=== PATIENT | female | born 1955 | race Caucasian/White ===

== ENCOUNTER 2023-06-21 10:01 | Day surgery (SDC) | payer BC, SELFPAY ==
[2023-06-21] VITALS (7 sets, daily range): BP systolic 108–128; BP diastolic 72–102; PULSE 87–130; RESP 16–18; TEMP 36.1–36.8; O2SAT 96–100; BMI 18.3
--- NOTE | 2023-06-21 11:13 | P.ANESASSM_ITS ---
Pre-Anesthetic Assessment Height/Weight: Height 1.55 m Weight 44 kg Temp Pulse Resp BP Pulse Ox O2 Del Method 98.3 F 96 18 123/84 96 Room Air 06/21/23 10:25 06/21/23 10:25 06/21/23 10:25 06/21/23 10:25 06/21/23 10:25 06/21/23 10:32 Operation Date: 06/21/23 12:00 Proposed Procedures p [id number] port placement C18.0(Not Applicable) - Florentin Garcia DO Familial anesthetic complications: None Was Beta Kristin taken within 24 hours: N/A Was Clonidine taken within 24 hours: N/A Last intake: Intake Last Liquid Date 06/20/23 Last Liquid Time 23:55 Last Solid Date 06/20/23 Last Solid Time 23:55 Social No alcohol and No tobacco Exam alert, oriented x 3, clear to auscultation bilaterally and regular rate & rhythm Airway Mallampati: Class II Dentition: false Pulmonary None reported CV/HEM None reported None reported Hepatic None reported GI None reported Metabolic None reported Musc/skel None reported Neuropsych None reported Anesthetic Plan ASA status: 3 Anesthesia: MAC Risk of > 500 ml blood loss (7ml/kg in children): No Medications/Allergies Home Medications Medication Instructions Recorded Confirmed Last Taken Type multivitamin-ferrous 1 tab PO DAILY 05/31/23 06/20/23 06/20/23 History fumarate-folic acid 18 mg-400 mcg tablet (Centrum Women) oxycodone 10 mg tablet 10 mg PO BID PRN Pain 06/15/23 06/20/23 06/20/23 History Allergies Allergy/AdvReac Type Severity Reaction Status Date / Time latex Allergy Intermediate ALGY-Rash Verified 06/15/23 15:24 adhesive tape Allergy Mild ALGY-Rash Verified 06/15/23 15:24 COUNT INCLUDES THE [facility] Anesthesia Medical History Iron deficiency anemia History of malignant neoplasm of appendix (2019) Surgical History Hx of right hemicolectomy (06/18/18) Social History Smoking and tobacco/nicotine status: never used tobacco/nicotine Alcohol intake: never Substance/Drug Use: never Data Anesthesia Cardiac Studies: No Data to Display
[2023-06-21] MEDS: scopolamine 1.5 Patch 1 PATCH TRANSDERMA (11:16)
[2023-06-21] MEDS: sodium chloride 0.9% 1,000 ML 30 ML IV (11:16)
[2023-06-21] MEDS: ondansetron 2 mg/ML SDV 2 mL 4 MG IVP (11:17)
--- NOTE | 2023-06-21 11:39 | SC_ITS ---
WS: [id number] C-arm fluoroscopy for insertion of left infusion port, 06/21/2023 Clinical Data: port placement Comparison: None. Findings: The left infusion port enters the subclavian vein and ends in the mid superior vena cava. Impression: Insertion of left infusion port.
--- NOTE | 2023-06-21 12:12 | XRR_ITS ---
PROCEDURE INFORMATION: Exam: XR Chest Exam date and time: 06/21/2023 1:16 PM Age: 67 years old Clinical indication: Device placement; Other: Mediport placement; Prior surgery; Surgery date: Post-operative (0-2 days); Additional info: Postop mediport placement TECHNIQUE: Imaging protocol: Radiologic exam of the chest. Views: 1 view. COMPARISON: No relevant prior studies available. FINDINGS: Lungs: No focal consolidation. Pleural spaces: No evidence of pneumothorax. No evidence of pleural effusion. Heart/Mediastinum: Left subclavian approach MediPort in place with tip in the region of the mid SVC. Cardiomediastinal silhouette is within normal limits. Bones/joints: No evidence of acute osseous abnormality. XR/XR chest 1V portable [id number] IMPRESSION: 1. Left subclavian approach MediPort in place with tip in the region of the mid SVC.
--- NOTE | 2023-06-21 12:13 | W.PM.OPSUD ---
Surgery/Procedure H&P Update DATE OF PROCEDURE: June 21, 2023 DATE H&P PERFORMED: 06/15/23 H&P UPDATE INFORMATION: I have reviewed H&P completed within last 30 days, I have examined patient prior to procedure and No changes to prior documentation PLANNED PROCEDURE: Operation Date: 06/21/23 12:00 Proposed Procedures p [id number] port placement C18.0(Not Applicable) - Florentin Garcia DO
[2023-06-21] MEDS: ceFAZolin 2,000 MG in sodium chloride 0.9% (plus) 50 ML 100 MG IV (12:30)
[2023-06-21] MEDS: lidocaine-epi 2% 20 mL INJ INJECTION (12:53)
[2023-06-21] MEDS: heparin, porcine 1,000 unit/mL INJ 10 mL 10000 UNIT IRRIGATION (12:54)
--- NOTE | 2023-06-21 13:05 | PM.OP ---
Operative Report Date of procedure: June 21, 2023 Pre-op diagnosis: Colon cancer Post-op diagnosis: same Procedure done: Mediport insertion Implants: PowerPort Specimens removed/disposition: None Surgeon: Florentin Garcia DO Anesthesia: General Estimated blood loss (mL): 5 Complications: None apparent Brief History: This very pleasant 67-year-old female with colon cancer. Oncology requested Mediport placement. The risk and benefits were explained and documented. Procedure: They put another order I will do right now things the patient was taken to the operating room and placed supine on the operating room table. All bony prominences were padded. She was given IV sedation and monitored throughout the case by the anesthesia personnel. SCDs were placed and turned on. The arms were tucked to the side. Patient received Ancef 2 g preoperatively IV. The bilateral chest wall was prepped and draped in usual sterile fashion using chlorhexidine base prep. Sterile drapes were applied. We did procedure pause prior to beginning. An 18 gauge needle was placed in the left subclavian vein. Dark, nonpulsatile blood was aspirated. A guidewire was placed through the needle centrally toward the atrial/vena caval junction. Fluoroscopy visualized good placement. The needle was removed and the guidewire was clipped to the drape with a hemostat. Further local anesthetic was infiltrated in the soft tissues of the left chest wall and a #15 blade was used to make a horizontal skin incision. A subcutaneous Mediport pocket was created using Bovie cautery, dissecting down through the skin and subcutaneous tissues. Meticulous hemostasis was achieved. The Mediport was sutured in position using 3-0 vicryl suture x2 stitches. A #15 blade was used to make a small skin maddie around the guidewire insertion area. The Mediport tubing was tunneled through the subcutaneous tissues up to the needle insertion location. A dilator with a peel-away sheath was placed over the guidewire and placed centrally. After measuring the Mediport tubing was cut to length so that the tip would end at the atrial/vena caval junction. The inner cannula and the guidewire were removed, leaving the dilator sheath in place. The Mediport was flushed. The tip of the catheter was inserted through the peel-away sheath and the peel-away sheath removed in the standard fashion. The Mediport was accessed with a straight Walton needle and dark, nonpulsatile blood was aspirated and flushed using heparinized saline to hep-lock the Mediport. Final fluoroscopy visualization showed no kink in the catheter and the tip of the Mediport tubing near the atrial/vena caval junction. Both skin incisions were thoroughly irrigated and suctioned dry. Meticulous hemostasis noted. The dermis was approximated with 3-0 Vicryl in an interrupted fashion. Skin was closed with Dermabond. Patient was awakened from anesthesia and transferred via her cart to the recovery room in stable condition. All needle, sponge, and instrument counts were correct per the operating personnel x2 counts.
--- NOTE | 2023-06-21 14:20 | ANE.PACU2 ---
Inpatient post-anesthesia follow up: Airway intact: Yes Vital signs: Temperature 97.8 F Pulse Rate 87 Respiratory Rate 16 Blood Pressure 126/80 Pulse Oximetry 98 Oxygen Delivery Me thod Room Air Oxygen Flow Rate Fraction of Inspir ed Oxygen Hydration adequate: Yes Nausea and vomiting: No Pain level: 1 Mental status: Baseline
== END 2023-06-21 14:20 | disposition home or self-care (01) ==
PROVIDERS: PCP Family Medicine; Visit Provider Surgery
PROC: (CPT 36561; principal; 2023-06-21 12:00)
DX: C18.0 Malignant neoplasm of cecum (principal); Z90.49 Acquired absence of other specified parts of digestive tract
CPT/HCPCS: 36561; 71045; 76000; 77001; C1788; J0690; J1644; J2250; J2405; J2704; J3010; J3490; J7030

== ENCOUNTER 2023-06-27 12:08 | Oncology outpatient (recurring) (ONCR) | payer BC, SELFPAY ==
[2023-06-27 12:37] LABS: Basophils # 0.1 10^3/uL (0.0-0.1); Eosinophils # 1.3 10^3/uL (0.0-0.8); Eosinophils % 18.8 %; Hematocrit 35.5 % (36-47); Lymphocytes # 1.1 10^3/uL (0.8-4.8); Lymphocytes % 16.5 %; Mean Corpuscular HGB Conc 30.1 g/dL (30-55); Mean Corpuscular Hemoglobin 22.9 pg (27-33); Mean Corpuscular Volume 75.9 fl (85-98); Mean Platelet Volume 9.2 fL (7.4-10.4); Monocytes # 0.5 10^3/uL (0.2-0.9); Monocytes % 7.4 %; Neutrophils # 3.86 10^3/uL (1.8-7.7); Nucleated Red Blood Cells % 0 %; Platelet Count 383 10^3/cmm (157-399); Red Blood Count 4.68 10^6/uL (3.85-5.65); Red Cell Distribution Width 17.2 % (12.1-15.1)
[2023-06-27 12:54] LABS: Alanine Aminotransferase 7 U/L (0-33); Albumin Level 3.7 g/dL (3.5-5.2); Alkaline Phosphatase 479 U/L (35-105); Anion Gap 16.7 (5-19); Aspartate Amino Transferase 20 U/L (0-32); Blood Urea Nitrogen 7 mg/dL (8-23); Calcium 9.6 mg/dL (8.5-10.5); Carbon Dioxide 26 mmol/L (22-29); Chloride 98 mmol/L (98-107); Ferritin 211 ng/mL (15-150); Globulin 3.9 g/dL (1.3-4.6); Glucose 142 mg/dL (65-115); Iron 15 ug/dL (37-145); Osmolality Calculated 284 mOsm/kg (285-295); Percent Saturation 5.3 % (20-50); Potassium 3.7 mmol/L (3.5-5.1); Sodium 137 mmol/L (136-145); Total Bilirubin 0.2 mg/dL (0.15-1.2); Total Iron Binding Capacity 283 mcg/dl; Total Protein 7.6 g/dL (6.6-8.7); Unsaturated Iron Binding 268 ug/dL (112-347)
== END 2023-07-21 23:59 | disposition home or self-care (01) ==
PROVIDERS: Family Provider Surgery; PCP Family Medicine; Visit Provider Internal Medicine Medical Oncology
DX: C18.0 Malignant neoplasm of cecum (principal); C78.7 Secondary malignant neoplasm of liver and intrahepatic bile duct; Z79.899 Other long term (current) drug therapy; Z90.49 Acquired absence of other specified parts of digestive tract; C77.9 Secondary and unspecified malignant neoplasm of lymph node, unspecified; Z95.828 Presence of other vascular implants and grafts
CPT/HCPCS: 36415; 80053; 82378; 82728; 83540; 83550; 85025

== ENCOUNTER 2023-08-11 13:00 | Oncology outpatient (recurring) (ONCR) | payer BC, SELFPAY ==
[2023-07-26 08:04] LABS: Basophils # 0.1 10^3/uL (0.0-0.1); Basophils % 1.3 %; Eosinophils # 1.2 10^3/uL (0.0-0.8); Eosinophils % 15.3 %; Hematocrit 29.7 % (36-47); Lymphocytes # 1.6 10^3/uL (0.8-4.8); Lymphocytes % 19.8 %; Mean Corpuscular HGB Conc 29.6 g/dL (30-55); Mean Corpuscular Hemoglobin 21.7 pg (27-33); Mean Corpuscular Volume 73.3 fl (85-98); Mean Platelet Volume 9.4 fL (7.4-10.4); Monocytes # 0.7 10^3/uL (0.2-0.9); Monocytes % 8.8 %; Neutrophils # 4.28 10^3/uL (1.8-7.7); Neutrophils % 54.5 %; Nucleated Red Blood Cells % 0 %; Platelet Count 349 10^3/cmm (157-399); Red Blood Count 4.05 10^6/uL (3.85-5.65); Red Cell Distribution Width 17.4 % (12.1-15.1); White Blood Count 7.84 10^3/uL (3.29-11.43)
[2023-07-26 08:39] LABS: Alanine Aminotransferase 13 U/L (0-33); Albumin Level 3.5 g/dL (3.5-5.2); Alkaline Phosphatase 468 U/L (35-105); Anion Gap 17.8 (5-19); Aspartate Amino Transferase 25 U/L (0-32); Blood Urea Nitrogen 11 mg/dL (8-23); Calcium 8.7 mg/dL (8.5-10.5); Carbon Dioxide 23 mmol/L (22-29); Chloride 98 mmol/L (98-107); Globulin 3.7 g/dL (1.3-4.6); Glucose 109 mg/dL (65-115); Osmolality Calculated 280 mOsm/kg (285-295); Potassium 3.8 mmol/L (3.5-5.1); Sodium 135 mmol/L (136-145); Total Bilirubin 0.2 mg/dL (0.15-1.2); Total Protein 7.2 g/dL (6.6-8.7)
[2023-07-26] MEDS: sodium chloride 0.9% 250 ML 75 ML IV (10:32)
[2023-07-26] MEDS: palonosetron 0.25 mg/5 mL SDV IVP (10:35)
[2023-07-26] MEDS: SODIUM CHLORIDE 0.9% IV (11:15)
[2023-07-26] MEDS: BEVACIZUMAB AWWB IV (11:15)
[2023-07-26] MEDS: dextrose 5% 250 ML 75 ML IV (12:48)
[2023-07-26] MEDS: oxaliplatin 100 MG, oxaliplatin 10 MG in dextrose 5% 250 ML 136 MG IV (12:49)
[2023-07-26] MEDS: leucovorin 540 MG in dextrose 5% 250 ML 62.5 MG IV (12:50)
[2023-07-26] MEDS: fluorouraciL 50 mg/ml MDV 100 mL 550 MG IVP (15:19)
[2023-07-26] MEDS: ELASTOMERIC PUMP PUMP IV (15:20)
[2023-07-26] MEDS: FLUOROURACIL IV (15:20)
[2023-07-26] MEDS: SODIUM CHLORIDE IV (15:20)
[2023-07-28] MEDS: sodium chloride 0.9% 500 ML 999 ML IV (13:53)
[2023-07-28] MEDS: dexamethasone 4 mg/mL INJ 8 MG IVP (13:56)
[2023-07-28 14:22] VITALS: BP 155/85; PULSE 77; TEMP 37.3; O2SAT 98
[2023-08-02 09:07] LABS: Basophils % 0.2 %; Eosinophils # 0.1 10^3/uL (0.0-0.8); Lymphocytes # 0.9 10^3/uL (0.8-4.8); Lymphocytes % 19.6 %; Mean Corpuscular HGB Conc 29.4 g/dL (30-55); Mean Corpuscular Hemoglobin 21.4 pg (27-33); Mean Corpuscular Volume 72.9 fl (85-98); Mean Platelet Volume 8.6 fL (7.4-10.4); Monocytes # 0.2 10^3/uL (0.2-0.9); Monocytes % 4.2 %; Neutrophils # 3.33 10^3/uL (1.8-7.7); Neutrophils % 73.6 %; Nucleated Red Blood Cells % 0 %; Platelet Count 241 10^3/cmm (157-399); Red Blood Count 4.25 10^6/uL (3.85-5.65); White Blood Count 4.53 10^3/uL (3.29-11.43)
[2023-08-02 09:43] LABS: Alanine Aminotransferase 8 U/L (0-33); Albumin Level 3.6 g/dL (3.5-5.2); Alkaline Phosphatase 392 U/L (35-105); Anion Gap 16.3 (5-19); Aspartate Amino Transferase 18 U/L (0-32); Blood Urea Nitrogen 9 mg/dL (8-23); Carbon Dioxide 25 mmol/L (22-29); Chloride 98 mmol/L (98-107); Creatinine Clr Calc Pharmacy 49.7452; Globulin 4.1 g/dL (1.3-4.6); Glucose 122 mg/dL (65-115); Iron 15 ug/dL (37-145); Osmolality Calculated 282 mOsm/kg (285-295); Percent Saturation 5.3 % (20-50); Potassium 3.3 mmol/L (3.5-5.1); Sodium 136 mmol/L (136-145); Total Bilirubin 0.4 mg/dL (0.15-1.2); Total Iron Binding Capacity 279 mcg/dl; Total Protein 7.7 g/dL (6.6-8.7); Unsaturated Iron Binding 264 ug/dL (112-347)
[2023-08-02 09:55] LABS: Ferritin 1054 ng/mL (15-150)
[2023-08-02 09:57] LABS: Vitamin B12 1545 pg/mL (232-1245)
[2023-08-02 11:00] LABS: Folate Level > 20.0 ng/mL (4.8-37.3)
[2023-08-02 11:27] LABS: Bilirubin Urine Neg (Negative); Blood Urine Neg (Negative); Glucose Urine UA Norm (Normal); Ketones Urine Negative (Negative); Leukocyte Esterase Urine Negative (Negative); Nitrate Urine Negative (Negative); Protein Urine Neg (Negative); Specific Gravity, Urine 1.025 (1.005-1.030); Urine Appearance Clear (CLEAR); Urine Color Dark Yellow (Yellow); Urobilinogen Urine Norm (Negative); pH Urine 6 (5-7)
[2023-08-02] MEDS: sodium chlor 0.9% + KCl 40 mEq 40 MEQ/1,000 ML BAG 250 MEQ IV (11:29)
[2023-08-02 11:35] LABS: Mucus Urine 1+ /hpf; RBC Urine 0-4 /hpf (0-2)
[2023-08-02 11:36] LABS: Add Urine Culture? No; Amorphous Sediment Urine TRACE /hpf
[2023-08-02 13:51] VITALS: BP 135/81; PULSE 80; TEMP 36.8; O2SAT 98
[2023-08-05 14:04] LABS: Methylmalonic Acid 110 nmol/L (87-318)
[2023-08-08 11:50] LABS: Soluble Transferrin Receptor 2.66 mg/L (0.76-1.76)
[2023-08-09 08:12] LABS: Basophils % 0.4 %; Eosinophils # 0.3 10^3/uL (0.0-0.8); Lymphocytes # 1.4 10^3/uL (0.8-4.8); Lymphocytes % 29.5 %; Mean Corpuscular HGB Conc 29.3 g/dL (30-55); Mean Corpuscular Hemoglobin 21.6 pg (27-33); Mean Corpuscular Volume 73.7 fl (85-98); Mean Platelet Volume 8.8 fL (7.4-10.4); Monocytes # 0.4 10^3/uL (0.2-0.9); Monocytes % 9.2 %; Neutrophils # 2.56 10^3/uL (1.8-7.7); Neutrophils % 54.7 %; Nucleated Red Blood Cells % 0 %; Platelet Count 339 10^3/cmm (157-399); Red Cell Distribution Width 18.1 % (12.1-15.1); White Blood Count 4.68 10^3/uL (3.29-11.43)
[2023-08-09 08:17] LABS: Alanine Aminotransferase 8 U/L (0-33); Albumin Level 3.4 g/dL (3.5-5.2); Alkaline Phosphatase 320 U/L (35-105); Anion Gap 14.6 (5-19); Aspartate Amino Transferase 17 U/L (0-32); Blood Urea Nitrogen 11 mg/dL (8-23); Calcium 8.5 mg/dL (8.5-10.5); Carbon Dioxide 25 mmol/L (22-29); Chloride 105 mmol/L (98-107); Creatinine Clr Calc Pharmacy 49.1507; Globulin 3.2 g/dL (1.3-4.6); Glomerular Filtration Rate 123.4 mL/min (90-130); Glucose 82 mg/dL (65-115); Osmolality Calculated 290 mOsm/kg (285-295); Potassium 3.6 mmol/L (3.5-5.1); Sodium 141 mmol/L (136-145); Total Bilirubin 0.2 mg/dL (0.15-1.2); Total Protein 6.6 g/dL (6.6-8.7)
[2023-08-09] MEDS: sodium chloride 0.9% 250 ML 75 ML IV (09:22)
[2023-08-09] MEDS: palonosetron 0.25 mg/5 mL SDV IVP (09:23)
[2023-08-09] MEDS: BEVACIZUMAB AWWB IV (09:51)
[2023-08-09] MEDS: SODIUM CHLORIDE 0.9% IV (09:51)
[2023-08-09] MEDS: dextrose 5% 250 ML 75 ML IV (11:14)
[2023-08-09] MEDS: leucovorin 540 MG in dextrose 5% 250 ML 62.5 MG IV (11:15)
[2023-08-09] MEDS: oxaliplatin 100 MG, oxaliplatin 10 MG in dextrose 5% 250 ML 136 MG IV (11:15)
[2023-08-09] MEDS: FLUOROURACIL IV (13:58)
[2023-08-09] MEDS: SODIUM CHLORIDE IV (13:58)
[2023-08-09] MEDS: ELASTOMERIC PUMP PUMP IV (13:58)
[2023-08-09] MEDS: fluorouraciL 50 mg/ml MDV 100 mL 550 MG IVP ×2 (14:01→14:03)
[2023-08-09 14:20] VITALS: BP 112/78; PULSE 78; RESP 18; TEMP 36.6; O2SAT 98
[2023-08-10 07:30] LABS: Ferritin 293 ng/mL (15-150); Iron 23 ug/dL (37-145); Percent Saturation 8.6 % (20-50); Total Iron Binding Capacity 265 mcg/dl; Unsaturated Iron Binding 242 ug/dL (112-347)
[2023-08-11] MEDS: ferumoxytol (NON-ESRD) 510 MG in sodium chloride 0.9% (100 ml) 100 ML 351 MG IV (14:01)
[2023-08-11 14:09] VITALS: BP 133/71; PULSE 72; RESP 16; O2SAT 98
[2023-08-11 14:40] VITALS: BP 151/80; PULSE 75; RESP 18; TEMP 36.6; O2SAT 98
== END 2023-08-21 23:59 | disposition home or self-care (01) ==
PROVIDERS: Internal Medicine; Nurse Practitioner Family; Family Provider Surgery; PCP Family Medicine; Visit Provider Internal Medicine Medical Oncology
DX: D50.0 Iron deficiency anemia secondary to blood loss (chronic); Z53.9 Procedure and treatment not carried out, unspecified reason
CPT/HCPCS: 36415; 80053; 81001; 82378; 82607; 82728; 82746; 83540; 83550; 83921; 84238; 85025; 96360; 96365; 96366; 96367; 96368; 96375; 96411; 96413; 96415; 96416; 96417; 96523; J0640; J1100; J1642; J2469; J7040; J7050; J7060; J9190; J9263; Q0138; Q5107

== ENCOUNTER 2023-09-20 07:45 | Oncology outpatient (recurring) (ONCR) | payer BC, SELFPAY ==
[2023-08-23 08:00] LABS: Basophils % 0.6 %; Eosinophils # 0.1 10^3/uL (0.0-0.8); Eosinophils % 1.7 %; Hematocrit 33.6 % (36-47); Lymphocytes # 1.5 10^3/uL (0.8-4.8); Lymphocytes % 28.4 %; Mean Corpuscular HGB Conc 29.5 g/dL (30-55); Mean Corpuscular Hemoglobin 23.3 pg (27-33); Mean Corpuscular Volume 79.2 fl (85-98); Mean Platelet Volume 8.6 fL (7.4-10.4); Monocytes # 0.6 10^3/uL (0.2-0.9); Monocytes % 10.7 %; Neutrophils # 3.07 10^3/uL (1.8-7.7); Neutrophils % 58.4 %; Nucleated Red Blood Cells % 0 %; Platelet Count 157 10^3/cmm (157-399); Red Blood Count 4.24 10^6/uL (3.85-5.65); Red Cell Distribution Width 24.9 % (12.1-15.1); White Blood Count 5.25 10^3/uL (3.29-11.43)
[2023-08-23 08:22] LABS: Alanine Aminotransferase 14 U/L (0-33); Albumin Level 3.7 g/dL (3.5-5.2); Alkaline Phosphatase 228 U/L (35-105); Anion Gap 14.1 (5-19); Aspartate Amino Transferase 23 U/L (0-32); Blood Urea Nitrogen 9 mg/dL (8-23); Calcium 8.6 mg/dL (8.5-10.5); Carbon Dioxide 24 mmol/L (22-29); Chloride 109 mmol/L (98-107); Globulin 3.5 g/dL (1.3-4.6); Glomerular Filtration Rate 123.4 mL/min (90-130); Glucose 105 mg/dL (65-115); Osmolality Calculated 297 mOsm/kg (285-295); Potassium 3.1 mmol/L (3.5-5.1); Sodium 144 mmol/L (136-145); Total Bilirubin 0.2 mg/dL (0.15-1.2); Total Protein 7.2 g/dL (6.6-8.7)
[2023-08-23] MEDS: sodium chloride 0.9% 250 ML 75 ML IV (09:36)
[2023-08-23] MEDS: palonosetron 0.25 mg/5 mL SDV IVP (09:39)
[2023-08-23] MEDS: potassium chloride ER 10 mEq Tablet 40 MEQ PO (09:49)
[2023-08-23] MEDS: SODIUM CHLORIDE 0.9% IV (10:50)
[2023-08-23] MEDS: BEVACIZUMAB AWWB IV (10:50)
[2023-08-23] MEDS: dextrose 5% 250 ML 75 ML IV (11:40)
[2023-08-23] MEDS: leucovorin 540 MG in dextrose 5% 250 ML 62.5 MG IV (11:49)
[2023-08-23] MEDS: oxaliplatin 100 MG, oxaliplatin 10 MG in dextrose 5% 250 ML 136 MG IV (11:50)
[2023-08-23] MEDS: fluorouraciL 50 mg/ml MDV 100 mL 550 MG IVP (14:19)
[2023-08-23] MEDS: ELASTOMERIC PUMP PUMP IV (14:26)
[2023-08-23] MEDS: SODIUM CHLORIDE IV (14:26)
[2023-08-23] MEDS: FLUOROURACIL IV (14:26)
[2023-08-23 14:35] VITALS: BP 159/80; PULSE 76; RESP 17; TEMP 36.7; O2SAT 99
[2023-08-25 12:05] VITALS: BP 128/77; PULSE 79; RESP 16; TEMP 36.6; O2SAT 96
[2023-08-25] MEDS: ferumoxytol (NON-ESRD) 510 MG in sodium chloride 0.9% (100 ml) 100 ML 351 MG IV (12:43)
[2023-08-25 13:15] VITALS: BP 142/84; PULSE 77; RESP 16; TEMP 36.9; O2SAT 98
[2023-09-06 08:06] LABS: Basophils % 0.5 %; Eosinophils # 0.1 10^3/uL (0.0-0.8); Eosinophils % 1.9 %; Hematocrit 32.3 % (36-47); Lymphocytes # 1.4 10^3/uL (0.8-4.8); Lymphocytes % 31.6 %; Mean Corpuscular HGB Conc 30.7 g/dL (30-55); Mean Corpuscular Hemoglobin 25.7 pg (27-33); Mean Corpuscular Volume 83.9 fl (85-98); Mean Platelet Volume 8.8 fL (7.4-10.4); Monocytes # 0.6 10^3/uL (0.2-0.9); Monocytes % 14.4 %; Neutrophils # 2.22 10^3/uL (1.8-7.7); Neutrophils % 51.4 %; Nucleated Red Blood Cells % 0 %; Platelet Count 112 10^3/cmm (157-399); Red Blood Count 3.85 10^6/uL (3.85-5.65); Red Cell Distribution Width 30.9 % (12.1-15.1); White Blood Count 4.31 10^3/uL (3.29-11.43)
[2023-09-06 08:34] LABS: Carcinoembryonic Antigen 195.5 ng/mL (0.0-4.7)
[2023-09-06 08:45] LABS: Alanine Aminotransferase 27 U/L (0-33); Albumin Level 3.8 g/dL (3.5-5.2); Alkaline Phosphatase 205 U/L (35-105); Anion Gap 13.1 (5-19); Aspartate Amino Transferase 32 U/L (0-32); Blood Urea Nitrogen 10 mg/dL (8-23); Calcium 8.6 mg/dL (8.5-10.5); Carbon Dioxide 23 mmol/L (22-29); Chloride 111 mmol/L (98-107); Creatinine Clr Calc Pharmacy 49.3173; Glomerular Filtration Rate 99.7 mL/min (90-130); Glucose 93 mg/dL (65-115); Osmolality Calculated 297 mOsm/kg (285-295); Potassium 3.1 mmol/L (3.5-5.1); Sodium 144 mmol/L (136-145); Total Bilirubin 0.4 mg/dL (0.15-1.2); Total Protein 6.8 g/dL (6.6-8.7)
[2023-09-06] MEDS: sodium chlor 0.9% + KCl 40 mEq 40 MEQ/1,000 ML BAG 250 MEQ IV (09:52)
[2023-09-06 09:53] LABS: Add Urine Microscopic? YES; Bilirubin Urine Neg (Negative); Blood Urine 2+ (Negative); Glucose Urine UA Norm (Normal); Ketones Urine Negative (Negative); Leukocyte Esterase Urine Negative (Negative); Nitrate Urine Negative (Negative); Protein Urine Neg (Negative); Specific Gravity, Urine 1.025 (1.005-1.030); Urine Appearance Clear (CLEAR); Urine Color Yellow (Yellow); Urobilinogen Urine Neg (Negative); pH Urine 5 (5-7)
[2023-09-06 09:54] LABS: Add Urine Culture? No; Squamous Epithelial Cell Urine RARE /hpf (0-5); WBC Urine RARE /hpf (0-5)
[2023-09-06] MEDS: sodium chloride 0.9% 250 ML 75 ML IV (11:03)
[2023-09-06] MEDS: palonosetron 0.25 mg/5 mL SDV IVP (11:04)
[2023-09-06] MEDS: BEVACIZUMAB AWWB IV (12:04)
[2023-09-06] MEDS: SODIUM CHLORIDE 0.9% IV (12:04)
[2023-09-06] MEDS: dextrose 5% 250 ML 75 ML IV (12:55)
[2023-09-06] MEDS: leucovorin 540 MG in dextrose 5% 250 ML 62.5 MG IV (12:57)
[2023-09-06] MEDS: oxaliplatin 100 MG, oxaliplatin 10 MG in dextrose 5% 250 ML 136 MG IV (12:57)
[2023-09-06] MEDS: fluorouraciL 50 mg/ml MDV 100 mL 550 MG IVP (15:05)
[2023-09-06] MEDS: FLUOROURACIL IV (15:15)
[2023-09-06] MEDS: SODIUM CHLORIDE IV (15:15)
[2023-09-06] MEDS: ELASTOMERIC PUMP PUMP IV (15:15)
[2023-09-06 15:19] VITALS: BP 168/92; PULSE 88; RESP 16; TEMP 37.1; O2SAT 98
[2023-09-08 13:45] LABS: Add Urine Microscopic? YES; Bilirubin Urine Neg (Negative); Blood Urine 2+ (Negative); Glucose Urine UA Norm (Normal); Ketones Urine Negative (Negative); Leukocyte Esterase Urine Negative (Negative); Nitrate Urine Negative (Negative); Protein Urine Neg (Negative); Specific Gravity, Urine 1.025 (1.005-1.030); Urine Appearance Clear (CLEAR); Urine Color Yellow (Yellow); Urobilinogen Urine Norm (Negative); pH Urine 5 (5-7)
[2023-09-08 13:50] LABS: RBC Urine 0-4 /hpf (0-2); WBC Urine 0-4 /hpf (0-5)
[2023-09-08 13:51] LABS: Add Urine Culture? No; Mucus Urine 1+ /hpf; Squamous Epithelial Cell Urine 0-4 /hpf (0-5)
[2023-09-08 14:00] LABS: Anion Gap 13.5 (5-19); Blood Urea Nitrogen 12 mg/dL (8-23); Calcium 8.8 mg/dL (8.5-10.5); Carbon Dioxide 24 mmol/L (22-29); Chloride 105 mmol/L (98-107); Creatinine Clr Calc Pharmacy 49.6594; Glomerular Filtration Rate 123.1 mL/min (90-130); Glucose 125 mg/dL (65-115); Osmolality Calculated 289 mOsm/kg (285-295); Potassium 3.5 mmol/L (3.5-5.1); Sodium 139 mmol/L (136-145)
[2023-09-20 08:04] LABS: Basophils % 0.8 %; Eosinophils # 0.1 10^3/uL (0.0-0.8); Eosinophils % 2.1 %; Hematocrit 39.2 % (36-47); Lymphocytes # 1.5 10^3/uL (0.8-4.8); Lymphocytes % 31.6 %; Mean Corpuscular HGB Conc 31.4 g/dL (30-55); Mean Corpuscular Hemoglobin 27.5 pg (27-33); Mean Corpuscular Volume 87.5 fl (85-98); Mean Platelet Volume 8.8 fL (7.4-10.4); Monocytes # 0.5 10^3/uL (0.2-0.9); Monocytes % 11.5 %; Neutrophils # 2.52 10^3/uL (1.8-7.7); Neutrophils % 53.6 %; Nucleated Red Blood Cells % 0 %; Platelet Count 95 10^3/cmm (157-399); Red Blood Count 4.48 10^6/uL (3.85-5.65); White Blood Count 4.71 10^3/uL (3.29-11.43)
[2023-09-20 08:30] LABS: Add RBC Morph Yes; Slide Review Slide Review Perform
[2023-09-20 08:31] LABS: Anisocytosis 2+; Dimorphic RBC 2+; Hypochromasia 1+; Microcytosis 1+; Poikilocytosis 2+; RBC Morph Comp No
[2023-09-20 08:40] LABS: Carcinoembryonic Antigen 124.6 ng/mL (0.0-4.7)
[2023-09-20 08:53] LABS: Anion Gap 13.5 (5-19); Blood Urea Nitrogen 10 mg/dL (8-23); Carbon Dioxide 25 mmol/L (22-29); Chloride 103 mmol/L (98-107); Potassium 3.5 mmol/L (3.5-5.1); Sodium 138 mmol/L (136-145)
[2023-09-20 08:54] LABS: Alanine Aminotransferase 43 U/L (0-33); Alkaline Phosphatase 261 U/L (35-105); Aspartate Amino Transferase 40 U/L (0-32); Calcium 9.4 mg/dL (8.5-10.5); Creatinine Clr Calc Pharmacy 49.6594; Globulin 3.5 g/dL (1.3-4.6); Glomerular Filtration Rate 99.7 mL/min (90-130); Glucose 122 mg/dL (65-115); Osmolality Calculated 286 mOsm/kg (285-295); Total Bilirubin 0.5 mg/dL (0.15-1.2); Total Protein 7.5 g/dL (6.6-8.7)
[2023-09-20] MEDS: palonosetron 0.25 mg/5 mL SDV IVP (10:06)
[2023-09-20] MEDS: sodium chloride 0.9% 250 ML 75 ML IV (10:06)
[2023-09-20] MEDS: BEVACIZUMAB AWWB IV (10:39)
[2023-09-20] MEDS: SODIUM CHLORIDE 0.9% IV (10:39)
[2023-09-20] MEDS: dextrose 5% 250 ML 75 ML IV (11:15)
[2023-09-20] MEDS: leucovorin 540 MG in dextrose 5% 250 ML 62.5 MG IV (11:20)
[2023-09-20] MEDS: oxaliplatin 100 MG, oxaliplatin 10 MG in dextrose 5% 250 ML 136 MG IV (11:20)
[2023-09-20] MEDS: fluorouraciL 50 mg/ml MDV 100 mL 550 MG IVP (13:42)
[2023-09-20] MEDS: SODIUM CHLORIDE IV (13:50)
[2023-09-20] MEDS: ELASTOMERIC PUMP PUMP IV (13:50)
[2023-09-20] MEDS: FLUOROURACIL IV (13:50)
[2023-09-20 14:00] VITALS: BP 157/80; PULSE 77; RESP 16; TEMP 35.8; O2SAT 98
== END 2023-09-20 23:59 | disposition home or self-care (01) ==
PROVIDERS: Internal Medicine; Family Provider Surgery; PCP Family Medicine; Visit Provider Internal Medicine Medical Oncology
DX: C18.3 Malignant neoplasm of hepatic flexure (principal); Z53.9 Procedure and treatment not carried out, unspecified reason; Z90.49 Acquired absence of other specified parts of digestive tract; C77.9 Secondary and unspecified malignant neoplasm of lymph node, unspecified; C78.7 Secondary malignant neoplasm of liver and intrahepatic bile duct; Z79.899 Other long term (current) drug therapy; Z51.11 Encounter for antineoplastic chemotherapy; Z95.828 Presence of other vascular implants and grafts; Z79.52 Long term (current) use of systemic steroids
CPT/HCPCS: 36591; 80048; 80053; 81001; 82378; 85025; 96365; 96366; 96367; 96368; 96375; 96409; 96411; 96413; 96415; 96416; 96417; 96523; J0640; J1100; J2469; J7050; J7060; J9190; J9263; Q0138; Q5107

== ENCOUNTER 2023-10-20 09:30 | Oncology outpatient (recurring) (ONCR) | payer BC, SELFPAY ==
[2023-10-04 08:44] LABS: Basophils % 0.3 %; Eosinophils # 0.1 10^3/uL (0.0-0.8); Hematocrit 33.9 % (36-47); Lymphocytes # 1.2 10^3/uL (0.8-4.8); Lymphocytes % 40.7 %; Mean Corpuscular HGB Conc 32.4 g/dL (30-55); Mean Corpuscular Hemoglobin 28.7 pg (27-33); Mean Corpuscular Volume 88.5 fl (85-98); Mean Platelet Volume 9.1 fL (7.4-10.4); Monocytes # 0.4 10^3/uL (0.2-0.9); Monocytes % 13.6 %; Neutrophils # 1.27 10^3/uL (1.8-7.7); Neutrophils % 42.1 %; Nucleated Red Blood Cells % 0 %; Platelet Count 58 10^3/cmm (157-399); Red Blood Count 3.83 10^6/uL (3.85-5.65); White Blood Count 3.02 10^3/uL (3.29-11.43)
[2023-10-04 09:01] LABS: Alanine Aminotransferase 37 U/L (0-33); Albumin Level 3.8 g/dL (3.5-5.2); Alkaline Phosphatase 260 U/L (35-105); Anion Gap 13.5 (5-19); Aspartate Amino Transferase 46 U/L (0-32); Blood Urea Nitrogen 7 mg/dL (8-23); Calcium 8.5 mg/dL (8.5-10.5); Carbon Dioxide 25 mmol/L (22-29); Chloride 105 mmol/L (98-107); Creatinine Clr Calc Pharmacy 49.4638; Globulin 3.2 g/dL (1.3-4.6); Glomerular Filtration Rate 123.1 mL/min (90-130); Glucose 95 mg/dL (65-115); Osmolality Calculated 288 mOsm/kg (285-295); Potassium 3.5 mmol/L (3.5-5.1); Sodium 140 mmol/L (136-145); Total Bilirubin 0.4 mg/dL (0.15-1.2)
[2023-10-04 09:18] LABS: Slide Review Slide Review Perform
[2023-10-04] MEDS: sodium chloride 0.9% 500 ML 999 ML IV (09:48)
[2023-10-04 09:53] LABS: Add Urine Microscopic? YES; Bilirubin Urine Neg (Negative); Blood Urine Neg (Negative); Glucose Urine UA Norm (Normal); Ketones Urine Negative (Negative); Leukocyte Esterase Urine Negative (Negative); Nitrate Urine Negative (Negative); Protein Urine Neg (Negative); Specific Gravity, Urine 1.025 (1.005-1.030); Urine Appearance SL Hazy (CLEAR); Urine Color Yellow (Yellow); Urobilinogen Urine Norm (Negative); pH Urine 6 (5-7)
[2023-10-04 09:56] LABS: Add Urine Culture? No; Mucus Urine 2+ /hpf; RBC Urine 0-4 /hpf (0-2); Squamous Epithelial Cell Urine 0-4 /hpf (0-5); WBC Urine 0-4 /hpf (0-5)
[2023-10-11 08:57] LABS: Basophils % 0.8 %; Eosinophils % 0.8 %; Hematocrit 37.3 % (36-47); Lymphocytes # 1.2 10^3/uL (0.8-4.8); Lymphocytes % 45.6 %; Mean Corpuscular HGB Conc 31.9 g/dL (30-55); Mean Corpuscular Hemoglobin 30.1 pg (27-33); Mean Corpuscular Volume 94.2 fl (85-98); Mean Platelet Volume 8.6 fL (7.4-10.4); Monocytes # 0.7 10^3/uL (0.2-0.9); Neutrophils % 25.4 %; Nucleated Red Blood Cells % 0 %; Platelet Count 112 10^3/cmm (157-399); Red Blood Count 3.96 10^6/uL (3.85-5.65); White Blood Count 2.59 10^3/uL (3.29-11.43)
[2023-10-11 09:13] LABS: Alanine Aminotransferase 24 U/L (0-33); Albumin Level 3.8 g/dL (3.5-5.2); Alkaline Phosphatase 256 U/L (35-105); Anion Gap 14.2 (5-19); Aspartate Amino Transferase 28 U/L (0-32); Blood Urea Nitrogen 15 mg/dL (8-23); Calcium 9.2 mg/dL (8.5-10.5); Carbon Dioxide 25 mmol/L (22-29); Chloride 104 mmol/L (98-107); Creatinine Clr Calc Pharmacy 49.4638; Globulin 3.7 g/dL (1.3-4.6); Glomerular Filtration Rate 99.7 mL/min (90-130); Glucose 97 mg/dL (65-115); Osmolality Calculated 289 mOsm/kg (285-295); Potassium 4.2 mmol/L (3.5-5.1); Sodium 139 mmol/L (136-145); Total Bilirubin 0.5 mg/dL (0.15-1.2); Total Protein 7.5 g/dL (6.6-8.7)
[2023-10-11 10:09] LABS: Neutrophils # 0.66 10^3/uL (1.8-7.7)
[2023-10-11 10:12] LABS: Slide Review Slide Review Perform
[2023-10-11 11:27] VITALS: BP 136/87; PULSE 85; RESP 17; TEMP 37; O2SAT 95
[2023-10-11] MEDS: filgrastim-sndz 300 mcg/0.5 mL Syringe SUBCUT (11:41)
[2023-10-11 11:45] VITALS: BP 136/87; PULSE 85; RESP 17; TEMP 37; O2SAT 95
[2023-10-12 16:23] VITALS: BP 116/77; PULSE 88; RESP 16; TEMP 36.6; O2SAT 97
[2023-10-12] MEDS: filgrastim-sndz 300 mcg/0.5 mL Syringe SUBCUT (16:25)
[2023-10-13] MEDS: filgrastim-sndz 300 mcg/0.5 mL Syringe SUBCUT (14:41)
[2023-10-13 14:44] VITALS: BP 116/78; PULSE 108; RESP 16; TEMP 36.6; O2SAT 99
[2023-10-18 08:24] LABS: Basophils # 0.1 10^3/uL (0.0-0.1); Basophils % 0.9 %; Eosinophils % 0.7 %; Hematocrit 38.4 % (36-47); Lymphocytes # 1.6 10^3/uL (0.8-4.8); Mean Corpuscular HGB Conc 32.3 g/dL (30-55); Mean Corpuscular Hemoglobin 30.5 pg (27-33); Mean Corpuscular Volume 94.3 fl (85-98); Mean Platelet Volume 9.6 fL (7.4-10.4); Monocytes # 0.7 10^3/uL (0.2-0.9); Monocytes % 11.9 %; Neutrophils # 2.78 10^3/uL (1.8-7.7); Neutrophils % 50.4 %; Nucleated Red Blood Cells % 0 %; Platelet Count 113 10^3/cmm (157-399); Red Blood Count 4.07 10^6/uL (3.85-5.65); White Blood Count 5.53 10^3/uL (3.29-11.43)
[2023-10-18 08:55] LABS: Carcinoembryonic Antigen 39.5 ng/mL (0.0-4.7)
[2023-10-18 09:07] LABS: Alanine Aminotransferase 25 U/L (0-33); Albumin Level 3.8 g/dL (3.5-5.2); Alkaline Phosphatase 271 U/L (35-105); Anion Gap 16.5 (5-19); Aspartate Amino Transferase 32 U/L (0-32); Blood Urea Nitrogen 11 mg/dL (8-23); Carbon Dioxide 24 mmol/L (22-29); Chloride 105 mmol/L (98-107); Creatinine Clr Calc Pharmacy 49.4638; Globulin 3.5 g/dL (1.3-4.6); Glomerular Filtration Rate 123.1 mL/min (90-130); Glucose 131 mg/dL (65-115); Osmolality Calculated 295 mOsm/kg (285-295); Potassium 3.5 mmol/L (3.5-5.1); Sodium 142 mmol/L (136-145); Total Bilirubin 0.3 mg/dL (0.15-1.2); Total Protein 7.3 g/dL (6.6-8.7)
[2023-10-18 09:31] LABS: Slide Review Slide Review Perform
[2023-10-18] MEDS: sodium chloride 0.9% 250 ML 75 ML IV (10:16)
[2023-10-18] MEDS: palonosetron 0.25 mg/5 mL SDV IVP (10:19)
[2023-10-18] MEDS: SODIUM CHLORIDE 0.9% IV (10:59)
[2023-10-18] MEDS: BEVACIZUMAB AWWB IV (10:59)
[2023-10-18] MEDS: dextrose 5% 250 ML 75 ML IV (11:43)
[2023-10-18] MEDS: oxaliplatin 100 MG, oxaliplatin 10 MG in dextrose 5% 250 ML 136 MG IV (11:44)
[2023-10-18] MEDS: leucovorin 540 MG in dextrose 5% 250 ML 62.5 MG IV (11:44)
[2023-10-18 13:40] VITALS: BP 124/78; PULSE 74; RESP 18; TEMP 36.6; O2SAT 98
[2023-10-18] MEDS: fluorouraciL 50 mg/ml MDV 100 mL 550 MG IVP (13:42)
[2023-10-18] MEDS: FLUOROURACIL IV (13:43)
[2023-10-18] MEDS: SODIUM CHLORIDE IV (13:43)
[2023-10-18] MEDS: ELASTOMERIC PUMP PUMP IV (13:43)
[2023-10-20 10:03] VITALS: BP 147/81; PULSE 84; RESP 18; TEMP 36.6; O2SAT 98
== END 2023-10-21 23:59 | disposition home or self-care (01) ==
PROVIDERS: Internal Medicine; Nurse Practitioner Family; Family Provider Surgery; PCP Family Medicine; Visit Provider Internal Medicine Medical Oncology
DX: Z45.1 Encounter for adjustment and management of infusion pump (principal); Z53.9 Procedure and treatment not carried out, unspecified reason
CPT/HCPCS: 80053; 81001; 82378; 85025; 96360; 96365; 96367; 96368; 96372; 96375; 96413; 96415; 96416; 96417; 96523; J0640; J1100; J2469; J7040; J7050; J7060; J9190; J9263; Q5101; Q5107

== ENCOUNTER 2023-11-18 14:45 | Oncology outpatient (recurring) (ONCR) | payer BC, SELFPAY ==
--- NOTE | 2023-10-31 12:00 | CT_ITS ---
WS: [id number] CT CHEST, ABDOMEN AND PELVIS WITH CONTRAST HISTORY: Restaging, colon and liver cancer. TECHNIQUE: Contiguous 5 mm axial imaging performed through the chest, abdomen and pelvis with IV cont rast, oral contrast has been provided. Coronal and sagittal reformats chest. Coronal and sagittal ref ormats through the abdomen and pelvis. All CT scans at [facility] use at least one of these d ose optimization techniques: automated exposure control; mA and/or kV adjustment per patient size (in cludes targeted exams where dose is matched to clinical indication); or iterative reconstruction. CONTRAST: Omnipaque 350; 100 mL IV. DLP: 398.42 mGy.cm COMPARISON: None available. History of prior RIGHT hemicolectomy 2018. Recurrent: Neoplasm March 2023. Biopsy-proven hepatic m etastatic disease. This history was obtained from oncology documentation. Chest CT: There are a few very small micronodules, less than 3 mm. No dominant mass or nodule. No pne umonia. No endobronchial lesions. LEFT subclavian Port-A-Cath. Mild atherosclerosis thoracic aorta. N ormal size pulmonary artery. Normal size heart. No pericardial or pleural effusions. No mediastinal o r hilar adenopathy. There are a few small axillary lymph nodes. No chest wall abnormality. No osteobl astic or osteolytic bone disease. Abdomen CT: Very large mass with irregular lobulated borders replacing a large portion RIGHT lobe of the liver. Low-attenuation mass measures 9.4 x 11.0 x 11.7 cm. 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 Th e RIGHT portal vein is not evident. The main portal vein and LEFT portal vein normal. There is mild c entral bile duct dilatation related to the hepatic mass. Normal size spleen. Gallbladder is slightly contracted with hepatic tumor extending to abut the gallbladder. Negative pancreas. No adrenal mass. No renal obstruction. Extrarenal pelvis on the RIGHT. No adrenal mass. Mild atherosclerosis aorta. No thrombus in the celiac axis or SMA. Stomach is well distended with oral contrast. Pylorus and proximal duodenal C-loop are markedly thick ened. There is circumferential thickening measuring up to 9 mm. No small bowel obstruction. Right-shireen ed hemicolectomy. Surgical anastomosis in the mid transverse colon. No recurrent mass is identified. Mild wall thickening at the rectum and. This area is difficult to evaluate by CT without contrast. No omental carcinomatosis. No ascites. Pelvic CT: No free fluid in the pelvis. Fluid-filled endometrial cavity. Normally distended urinary b ladder. No destructive bone lesions. CT/CT chest abdpel w/*[id number] IMPRESSION: 1. Status post RIGHT hemicolectomy. Surgical anastomosis in the mid transverse colon is identified. No recurrent mass is present or obstruction. The distal c olon is difficult to adequately imaged by CT. 2. Hepatic mass in the RIGHT lobe measures 9.4 x 11.0 x 11.7 cm. Consistent wi th a previously biopsied hepatic metastatic site. 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 3. Diffuse circumferential wall thickening of the pylorus and duodenal C-loop. Neoplasm is not excluded. There is no obstruction. 4. No ascites. 5. Marked fluid-filled endometrium. Recommend transvaginal pelvic ultrasound e valuation. Endometrial neoplasm should be considered and excluded.
[2023-10-31] MEDS: iohexol 350 mg/mL 100 mL Btl PO (12:05)
[2023-10-31] MEDS: iohexol 350 mg/mL 500 mL Btl (per mL) IV (12:05)
[2023-11-01 07:54] LABS: Basophils % 0.2 %; Eosinophils % 0.5 %; Hematocrit 33.4 % (36-47); Lymphocytes # 0.9 10^3/uL (0.8-4.8); Lymphocytes % 22.4 %; Mean Corpuscular HGB Conc 33.5 g/dL (30-55); Mean Corpuscular Hemoglobin 32.3 pg (27-33); Mean Corpuscular Volume 96.3 fl (85-98); Mean Platelet Volume 9.1 fL (7.4-10.4); Monocytes # 0.8 10^3/uL (0.2-0.9); Monocytes % 18.6 %; Neutrophils # 2.44 10^3/uL (1.8-7.7); Neutrophils % 58.1 %; Nucleated Red Blood Cells % 0 %; Platelet Count 146 10^3/cmm (157-399); Red Blood Count 3.47 10^6/uL (3.85-5.65); Red Cell Distribution Width 19.2 % (12.1-15.1)
[2023-11-01 08:16] LABS: Alanine Aminotransferase 36 U/L (0-33); Albumin Level 3.7 g/dL (3.5-5.2); Alkaline Phosphatase 373 U/L (35-105); Anion Gap 16.1 (5-19); Aspartate Amino Transferase 34 U/L (0-32); Blood Urea Nitrogen 7 mg/dL (8-23); Calcium 8.9 mg/dL (8.5-10.5); Carbon Dioxide 25 mmol/L (22-29); Chloride 101 mmol/L (98-107); Globulin 3.6 g/dL (1.3-4.6); Glomerular Filtration Rate 159.2 mL/min (90-130); Glucose 105 mg/dL (65-115); Osmolality Calculated 286 mOsm/kg (285-295); Potassium 3.1 mmol/L (3.5-5.1); Sodium 139 mmol/L (136-145); Total Bilirubin 0.8 mg/dL (0.15-1.2); Total Protein 7.3 g/dL (6.6-8.7)
[2023-11-01 08:23] LABS: Carcinoembryonic Antigen 28.4 ng/mL (0.0-4.7)
[2023-11-01] MEDS: palonosetron 0.25 mg/5 mL SDV IVP (09:39)
[2023-11-01] MEDS: sodium chloride 0.9% 250 ML 75 ML IV (09:39)
[2023-11-01] MEDS: SODIUM CHLORIDE 0.9% IV (10:28)
[2023-11-01] MEDS: BEVACIZUMAB AWWB IV (10:28)
[2023-11-01] MEDS: dextrose 5% 250 ML 75 ML IV (11:15)
[2023-11-01] MEDS: oxaliplatin 100 MG, oxaliplatin 10 MG in dextrose 5% 250 ML 136 MG IV (11:19)
[2023-11-01] MEDS: leucovorin 540 MG in dextrose 5% 250 ML 62.5 MG IV (11:20)
[2023-11-01] MEDS: fluorouraciL 50 mg/ml MDV 100 mL 550 MG IVP (14:19)
[2023-11-01] MEDS: ELASTOMERIC PUMP PUMP IV (14:32)
[2023-11-01] MEDS: FLUOROURACIL IV (14:32)
[2023-11-01] MEDS: SODIUM CHLORIDE IV (14:32)
[2023-11-01 14:45] VITALS: BP 156/82; PULSE 82; RESP 17; TEMP 35.9; O2SAT 97
[2023-11-03 12:50] VITALS: BP 128/81; PULSE 97; RESP 16; TEMP 37.1; O2SAT 98
[2023-11-15 08:26] LABS: Basophils % 0.6 %; Eosinophils % 0.6 %; Hematocrit 34.1 % (36-47); Lymphocytes # 1.1 10^3/uL (0.8-4.8); Lymphocytes % 32.9 %; Mean Corpuscular HGB Conc 33.4 g/dL (30-55); Mean Corpuscular Hemoglobin 32.9 pg (27-33); Mean Corpuscular Volume 98.6 fl (85-98); Mean Platelet Volume 8.9 fL (7.4-10.4); Monocytes # 0.6 10^3/uL (0.2-0.9); Neutrophils # 1.69 10^3/uL (1.8-7.7); Neutrophils % 48.6 %; Nucleated Red Blood Cells % 0 %; Platelet Count 84 10^3/cmm (157-399); Red Blood Count 3.46 10^6/uL (3.85-5.65); Red Cell Distribution Width 17.2 % (12.1-15.1); White Blood Count 3.47 10^3/uL (3.29-11.43)
[2023-11-15 08:44] LABS: Alanine Aminotransferase 21 U/L (0-33); Albumin Level 3.7 g/dL (3.5-5.2); Alkaline Phosphatase 274 U/L (35-105); Anion Gap 16.7 (5-19); Aspartate Amino Transferase 37 U/L (0-32); Blood Urea Nitrogen 8 mg/dL (8-23); Carbon Dioxide 23 mmol/L (22-29); Chloride 105 mmol/L (98-107); Creatinine Clr Calc Pharmacy 49.2686; Globulin 3.6 g/dL (1.3-4.6); Glomerular Filtration Rate 159.2 mL/min (90-130); Glucose 92 mg/dL (65-115); Osmolality Calculated 290 mOsm/kg (285-295); Potassium 3.7 mmol/L (3.5-5.1); Sodium 141 mmol/L (136-145); Total Bilirubin 0.3 mg/dL (0.15-1.2); Total Protein 7.3 g/dL (6.6-8.7)
--- NOTE | 2023-11-18 14:45 | US_ITS ---
WS: [id number] US transvaginal [id number] HISTORY: marked fluid filled endometrium on CT scan 10/31/23. COMPARISON: None available. Uterus: 4.9 cm x 4.6 cm x 2.9 cm. Anteverted small caliber uterus. Peripheral increased vascularity. Endometrium: The endometrium and the junctional zone are poorly defined. There may be a very thin end ometrium in the adjacent areas of decreased echogenicity may be the normal myometrium. There is no ma ss or increased vascularity. Neither ovary is identified. No adnexal mass. No free fluid. US/US transvaginal [id number] IMPRESSION: 1. Poorly defined endometrium. No definite endometrium is identified. There ma y be a very thin endometrium and the areas of decreased attenuation on the rece nt CT may be the normal myometrium for this patient. There is no increased vasc ularity. 2. Atrophic uterus. 3. Neither ovary identified.
== END 2023-11-20 23:59 | disposition home or self-care (01) ==
LOC: ONCMED 11-21 10:16
PROVIDERS: Internal Medicine Medical Oncology; Family Provider Surgery; PCP Family Medicine; Visit Provider Nurse Practitioner Family
DX: Z53.9 Procedure and treatment not carried out, unspecified reason (principal); C18.3 Malignant neoplasm of hepatic flexure; R93.5 Abnormal findings on diagnostic imaging of other abdominal regions, including retroperitoneum; N85.8 Other specified noninflammatory disorders of uterus
CPT/HCPCS: 71260; 74177; 76830; 80053; 82378; 85025; 96365; 96366; 96367; 96375; 96413; 96415; 96416; 96417; 96523; J0640; J1100; J2469; J7050; J7060; J9190; J9263; Q5107; Q9967

== ENCOUNTER 2023-12-15 13:30 | Oncology outpatient (recurring) (ONCR) | payer BC, SELFPAY ==
[2023-11-22 08:35] LABS: Basophils % 1.2 %; Eosinophils % 1.6 %; Hematocrit 38.7 % (36-47); Lymphocytes # 1.4 10^3/uL (0.8-4.8); Mean Corpuscular HGB Conc 32.3 g/dL (30-55); Mean Corpuscular Hemoglobin 33.1 pg (27-33); Mean Corpuscular Volume 102.4 fl (85-98); Monocytes # 0.4 10^3/uL (0.2-0.9); Monocytes % 15.2 %; Nucleated Red Blood Cells % 0 %; Platelet Count 140 10^3/cmm (157-399); Red Blood Count 3.78 10^6/uL (3.85-5.65); Red Cell Distribution Width 17.2 % (12.1-15.1); White Blood Count 2.44 10^3/uL (3.29-11.43)
[2023-11-22 08:59] LABS: Neutrophils # 0.61 10^3/uL (1.8-7.7)
[2023-11-22 09:01] LABS: Alanine Aminotransferase 42 U/L (0-33); Alkaline Phosphatase 302 U/L (35-105); Anion Gap 16.6 (5-19); Aspartate Amino Transferase 60 U/L (0-32); Blood Urea Nitrogen 8 mg/dL (8-23); Calcium 9.5 mg/dL (8.5-10.5); Carbon Dioxide 25 mmol/L (22-29); Chloride 102 mmol/L (98-107); Globulin 3.6 g/dL (1.3-4.6); Glomerular Filtration Rate 123.1 mL/min (90-130); Glucose 135 mg/dL (65-115); Osmolality Calculated 290 mOsm/kg (285-295); Potassium 3.6 mmol/L (3.5-5.1); Sodium 140 mmol/L (136-145); Total Bilirubin 0.4 mg/dL (0.15-1.2); Total Protein 7.6 g/dL (6.6-8.7)
[2023-11-22 11:36] LABS: Carcinoembryonic Antigen 21.9 ng/mL (0.0-4.7)
[2023-11-29 08:29] LABS: Basophils % 0.9 %; Eosinophils % 1.2 %; Hematocrit 38.6 % (36-47); Lymphocytes # 1.2 10^3/uL (0.8-4.8); Lymphocytes % 33.8 %; Mean Corpuscular HGB Conc 32.4 g/dL (30-55); Mean Corpuscular Volume 101.8 fl (85-98); Mean Platelet Volume 9.3 fL (7.4-10.4); Monocytes # 0.4 10^3/uL (0.2-0.9); Monocytes % 11.3 %; Neutrophils # 1.82 10^3/uL (1.8-7.7); Neutrophils % 52.5 %; Nucleated Red Blood Cells % 0 %; Platelet Count 109 10^3/cmm (157-399); Red Blood Count 3.79 10^6/uL (3.85-5.65); Red Cell Distribution Width 14.8 % (12.1-15.1); White Blood Count 3.46 10^3/uL (3.29-11.43)
[2023-11-29 08:37] LABS: Alanine Aminotransferase 21 U/L (0-33); Albumin Level 3.8 g/dL (3.5-5.2); Alkaline Phosphatase 288 U/L (35-105); Anion Gap 15.6 (5-19); Aspartate Amino Transferase 32 U/L (0-32); Blood Urea Nitrogen 12 mg/dL (8-23); Calcium 9.1 mg/dL (8.5-10.5); Carbon Dioxide 25 mmol/L (22-29); Chloride 106 mmol/L (98-107); Creatinine Clr Calc Pharmacy 49.1707; Globulin 3.5 g/dL (1.3-4.6); Glomerular Filtration Rate 99.7 mL/min (90-130); Glucose 143 mg/dL (65-115); Osmolality Calculated 298 mOsm/kg (285-295); Potassium 3.6 mmol/L (3.5-5.1); Sodium 143 mmol/L (136-145); Total Bilirubin 0.4 mg/dL (0.15-1.2); Total Protein 7.3 g/dL (6.6-8.7)
[2023-11-29] MEDS: sodium chloride 0.9% 250 ML 75 ML IV (10:36)
[2023-11-29] MEDS: palonosetron 0.25 mg/5 mL SDV IVP (10:36)
[2023-11-29] MEDS: dexamethasone 4 mg/mL INJ 5 mL 12 MG IV (10:38)
[2023-11-29] MEDS: fosaprepitant 150 MG in sodium chloride 0.9% 150 ML 300 MG IV (10:41)
[2023-11-29] MEDS: BEVACIZUMAB AWWB IV (11:29)
[2023-11-29] MEDS: SODIUM CHLORIDE 0.9% IV (11:29)
[2023-11-29] MEDS: dextrose 5% 250 ML 75 ML IV (12:06)
[2023-11-29] MEDS: leucovorin 540 MG in dextrose 5% 250 ML 115 MG IV (12:08)
[2023-11-29 14:39] VITALS: BP 138/84; PULSE 76; TEMP 36.8; O2SAT 97
[2023-11-29] MEDS: FLUOROURACIL IV (14:45)
[2023-11-29] MEDS: SODIUM CHLORIDE IV (14:45)
[2023-11-29] MEDS: ELASTOMERIC PUMP PUMP IV (14:45)
[2023-12-01 12:51] VITALS: BP 127/88; PULSE 88; RESP 16; TEMP 36.1; O2SAT 98
[2023-12-13 08:14] LABS: Basophils % 0.5 %; Eosinophils # 0.1 10^3/uL (0.0-0.8); Eosinophils % 1.9 %; Hematocrit 38.8 % (36-47); Lymphocytes # 1.1 10^3/uL (0.8-4.8); Lymphocytes % 30.4 %; Mean Corpuscular HGB Conc 33.5 g/dL (30-55); Mean Corpuscular Hemoglobin 33.9 pg (27-33); Mean Corpuscular Volume 101.3 fl (85-98); Mean Platelet Volume 9.2 fL (7.4-10.4); Monocytes # 0.4 10^3/uL (0.2-0.9); Monocytes % 9.8 %; Neutrophils # 2.11 10^3/uL (1.8-7.7); Neutrophils % 57.1 %; Nucleated Red Blood Cells % 0 %; Platelet Count 94 10^3/cmm (157-399); Red Blood Count 3.83 10^6/uL (3.85-5.65); White Blood Count 3.69 10^3/uL (3.29-11.43)
[2023-12-13 08:38] LABS: Carcinoembryonic Antigen 17.6 ng/mL (0.0-4.7)
[2023-12-13 08:49] LABS: Alanine Aminotransferase 76 U/L (0-33); Albumin Level 3.8 g/dL (3.5-5.2); Alkaline Phosphatase 333 U/L (35-105); Anion Gap 16.8 (5-19); Aspartate Amino Transferase 71 U/L (0-32); Blood Urea Nitrogen 10 mg/dL (8-23); Calcium 8.9 mg/dL (8.5-10.5); Carbon Dioxide 22 mmol/L (22-29); Chloride 105 mmol/L (98-107); Creatinine Clr Calc Pharmacy 49.4638; Globulin 3.6 g/dL (1.3-4.6); Glomerular Filtration Rate 123.1 mL/min (90-130); Glucose 158 mg/dL (65-115); Osmolality Calculated 292 mOsm/kg (285-295); Potassium 3.8 mmol/L (3.5-5.1); Sodium 140 mmol/L (136-145); Total Bilirubin 0.4 mg/dL (0.15-1.2); Total Protein 7.4 g/dL (6.6-8.7)
[2023-12-13] MEDS: sodium chloride 0.9% 250 ML 75 ML IV (10:45)
[2023-12-13] MEDS: palonosetron 0.25 mg/5 mL SDV IVP (10:46)
[2023-12-13] MEDS: dexamethasone 4 mg/mL INJ 5 mL 12 MG IV (10:49)
[2023-12-13] MEDS: fosaprepitant 150 MG in sodium chloride 0.9% 50 ML, sodium chloride 0.9% (100 ml) 100 ML 300 MG IV (11:13)
[2023-12-13] MEDS: SODIUM CHLORIDE 0.9% IV (11:55)
[2023-12-13] MEDS: BEVACIZUMAB AWWB IV (11:55)
[2023-12-13] MEDS: dextrose 5% 250 ML 75 ML IV (12:41)
[2023-12-13] MEDS: oxaliplatin 100 MG, oxaliplatin 10 MG in dextrose 5% 250 ML 136 MG IV (12:46)
[2023-12-13] MEDS: leucovorin 560 MG in dextrose 5% 250 ML 62.5 MG IV (12:47)
[2023-12-13] MEDS: SODIUM CHLORIDE IV (15:11)
[2023-12-13] MEDS: ELASTOMERIC PUMP PUMP IV (15:11)
[2023-12-13] MEDS: FLUOROURACIL IV (15:11)
[2023-12-13 15:30] VITALS: BP 164/89; PULSE 81; RESP 17; TEMP 37.2; O2SAT 98
[2023-12-15 13:23] VITALS: BP 148/84; PULSE 82; O2SAT 98
== END 2023-12-21 23:59 | disposition home or self-care (01) ==
PROVIDERS: Family Provider Surgery; PCP Family Medicine; Visit Provider Nurse Practitioner Family
DX: Z45.1 Encounter for adjustment and management of infusion pump (principal); Z53.9 Procedure and treatment not carried out, unspecified reason
CPT/HCPCS: 80053; 82378; 85025; 96365; 96366; 96367; 96368; 96375; 96413; 96415; 96416; 96417; 96523; J0640; J1100; J1453; J2469; J7050; J7060; J9190; J9263; Q5107

== ENCOUNTER 2024-01-05 11:30 | Oncology outpatient (recurring) (ONCR) | payer OTHER, SELFPAY ==
[2023-12-27 08:30] LABS: Eosinophils % 1.3 %; Lymphocytes % 32.4 %; Mean Corpuscular HGB Conc 32.9 g/dL (30-55); Mean Corpuscular Hemoglobin 32.9 pg (27-33); Monocytes # 0.5 10^3/uL (0.2-0.9); Monocytes % 15.1 %; Neutrophils # 1.56 10^3/uL (1.8-7.7); Neutrophils % 49.9 %; Nucleated Red Blood Cells % 0 %; Platelet Count 72 10^3/cmm (157-399); Red Cell Distribution Width 14.2 % (12.1-15.1); White Blood Count 3.12 10^3/uL (3.29-11.43)
[2023-12-27 08:44] LABS: Alanine Aminotransferase 36 U/L (0-33); Albumin Level 3.7 g/dL (3.5-5.2); Alkaline Phosphatase 328 U/L (35-105); Anion Gap 15.2 (5-19); Aspartate Amino Transferase 37 U/L (0-32); Blood Urea Nitrogen 9 mg/dL (8-23); Calcium 8.6 mg/dL (8.5-10.5); Carbon Dioxide 23 mmol/L (22-29); Chloride 107 mmol/L (98-107); Glomerular Filtration Rate 123.1 mL/min (90-130); Glucose 121 mg/dL (65-115); Osmolality Calculated 294 mOsm/kg (285-295); Potassium 3.2 mmol/L (3.5-5.1); Sodium 142 mmol/L (136-145); Total Bilirubin 0.4 mg/dL (0.15-1.2); Total Protein 6.7 g/dL (6.6-8.7)
[2024-01-03 08:43] LABS: Hematocrit 36.9 % (36-47); Mean Corpuscular HGB Conc 33.1 g/dL (30-55); Mean Corpuscular Volume 99.7 fl (85-98); Monocytes # 0.5 10^3/uL (0.2-0.9); Nucleated Red Blood Cells % 0 %; Red Cell Distribution Width 14.3 % (12.1-15.1)
[2024-01-03 09:01] LABS: Carcinoembryonic Antigen 13.9 ng/mL (0.0-4.7)
[2024-01-03 09:14] LABS: Alanine Aminotransferase 41 U/L (0-33); Albumin Level 3.7 g/dL (3.5-5.2); Alkaline Phosphatase 375 U/L (35-105); Anion Gap 15.2 (5-19); Aspartate Amino Transferase 33 U/L (0-32); Blood Urea Nitrogen 8 mg/dL (8-23); Calcium 8.9 mg/dL (8.5-10.5); Carbon Dioxide 22 mmol/L (22-29); Chloride 104 mmol/L (98-107); Creatinine Clr Calc Pharmacy 48.8773; Globulin 3.7 g/dL (1.3-4.6); Glomerular Filtration Rate 123.1 mL/min (90-130); Glucose 163 mg/dL (65-115); Osmolality Calculated 288 mOsm/kg (285-295); Potassium 3.2 mmol/L (3.5-5.1); Sodium 138 mmol/L (136-145); Total Bilirubin 0.5 mg/dL (0.15-1.2); Total Protein 7.4 g/dL (6.6-8.7)
[2024-01-03 10:06] LABS: Magnesium 2.1 mg/dL (1.7-2.3)
[2024-01-03 10:20] LABS: Basophils % 0.8 %; Eosinophils % 1.6 %; Mean Platelet Volume 9.8 fL (7.4-10.4); Monocytes % 19.6 %; Neutrophils % 37.6 %; Platelet Count 115 10^3/cmm (157-399); White Blood Count 2.55 10^3/uL (3.29-11.43)
[2024-01-03 10:22] LABS: Neutrophils # 0.96 10^3/uL (1.8-7.7)
[2024-01-03] MEDS: dextrose 5% 250 ML 75 ML IV (11:27)
[2024-01-03] MEDS: dexamethasone 4 mg/mL INJ 5 mL 12 MG IVP (11:31)
[2024-01-03] MEDS: palonosetron 0.25 mg/5 mL SDV IVP (11:41)
[2024-01-03] MEDS: fosaprepitant 150 MG in sodium chloride 0.9% 50 ML, sodium chloride 0.9% (100 ml) 100 ML 300 MG IV (11:42)
[2024-01-03] MEDS: LEUCOVORIN IV (12:20)
[2024-01-03] MEDS: DEXTROSE 5% IV (12:20)
[2024-01-03 14:00] VITALS: BP 149/72; PULSE 78; RESP 16; TEMP 36.8; O2SAT 98
[2024-01-03] MEDS: sodium chloride 0.9% 250 ML 700 ML IV (14:05)
[2024-01-03 14:11] VITALS: BP 136/80; PULSE 78; RESP 16; TEMP 36.8; O2SAT 96
[2024-01-03] MEDS: diphenhydrAMINE 50 mg/mL SDV 1mL 25 MG IVP (14:23)
[2024-01-03] MEDS: methylPREDNISolone sod succ 125 mg/2 mL INJ 60 MG IVP (14:25)
[2024-01-03 14:28] VITALS: BP 158/85; PULSE 75; RESP 16; TEMP 36.8; O2SAT 98
[2024-01-03] MEDS: sodium chloride 0.9% 1,000 ML 999 ML IV (14:38)
[2024-01-03 14:51] VITALS: BP 148/84; PULSE 84; RESP 16; O2SAT 96
--- NOTE | 2024-01-03 14:57 | PC.NURSE ---
RN at chairside, patient hives no longer bright red and raised, patient also no longer itching. will continue to monitor, patient denies any difficulty breathing, all vitals WNL.
--- NOTE | 2024-01-03 15:19 | PC.NURSE ---
RN at chairside, hives gone and patient denies itching.
[2024-01-03] MEDS: SODIUM CHLORIDE IV (15:43)
[2024-01-03] MEDS: ELASTOMERIC PUMP PUMP IV (15:43)
[2024-01-03] MEDS: FLUOROURACIL IV (15:43)
[2024-01-03 15:55] VITALS: BP 151/89; PULSE 84; RESP 17; TEMP 36.6; O2SAT 98
[2024-01-05] MEDS: pegfilgrastim 6 mg/0.6 mL Kit (onpro) SUBCUT (11:14)
== END 2024-01-21 23:59 | disposition home or self-care (01) ==
PROVIDERS: Nurse Practitioner Family; Family Provider Surgery; PCP Family Medicine; Visit Provider Nurse Practitioner Family
DX: Z45.1 Encounter for adjustment and management of infusion pump; Z53.9 Procedure and treatment not carried out, unspecified reason; Z79.899 Other long term (current) drug therapy; D70.1 Agranulocytosis secondary to cancer chemotherapy
CPT/HCPCS: 80053; 82378; 83735; 85025; 96360; 96365; 96366; 96367; 96375; 96377; 96413; 96415; 96416; 96417; 96523; J0640; J1100; J1200; J1453; J2469; J2506; J2919; J7030; J7050; J7060; J9190; J9263

== ENCOUNTER 2024-04-17 13:12 | Oncology outpatient (recurring) (ONCR) | payer OTHER, SELFPAY ==
[2024-03-27 09:22] LABS: Basophils % 0.7 %; Eosinophils # 0.1 10^3/uL (0.0-0.8); Eosinophils % 2.3 %; Hematocrit 36.5 % (36-47); Lymphocytes # 1.1 10^3/uL (0.8-4.8); Lymphocytes % 36.8 %; Mean Corpuscular HGB Conc 31.8 g/dL (30-55); Mean Corpuscular Hemoglobin 29.4 pg (27-33); Mean Corpuscular Volume 92.4 fl (85-98); Mean Platelet Volume 9.5 fL (7.4-10.4); Monocytes # 0.3 10^3/uL (0.2-0.9); Monocytes % 9.4 %; Neutrophils # 1.52 10^3/uL (1.8-7.7); Neutrophils % 50.8 %; Nucleated Red Blood Cells % 0 %; Platelet Count 103 10^3/cmm (157-399); Red Blood Count 3.95 10^6/uL (3.85-5.65); Red Cell Distribution Width 14.6 % (12.1-15.1); White Blood Count 2.99 10^3/uL (3.29-11.43)
[2024-03-27 09:49] LABS: Carcinoembryonic Antigen 4.2 ng/mL (0.0-4.7)
[2024-03-27 10:00] LABS: Alanine Aminotransferase 27 U/L (0-33); Albumin Level 3.9 g/dL (3.5-5.2); Alkaline Phosphatase 323 U/L (35-105); Anion Gap 14.6 (5-19); Aspartate Amino Transferase 43 U/L (0-32); Blood Urea Nitrogen 9 mg/dL (8-23); Calcium 8.8 mg/dL (8.5-10.5); Carbon Dioxide 25 mmol/L (22-29); Chloride 105 mmol/L (98-107); Creatinine Clr Calc Pharmacy 49.0729; Globulin 3.1 g/dL (1.3-4.6); Glomerular Filtration Rate 83.5 mL/min (90-130); Glucose 108 mg/dL (65-115); Osmolality Calculated 291 mOsm/kg (285-295); Potassium 3.6 mmol/L (3.5-5.1); Sodium 141 mmol/L (136-145); Total Bilirubin 0.6 mg/dL (0.15-1.2)
--- NOTE | 2024-04-11 08:30 | CTR_ITS ---
PROCEDURE INFORMATION: Exam: CT Chest With Contrast; Diagnostic Exam date and time: 04/11/2024 9:37 AM Age: 68 years old Clinical indication: Condition or disease; Other: Malignant neoplasm of hepatic flexure; Prior surgery; Surgery date: 6+ months; Surgery type: Colon x 2, gb, tubal, appy, liver; Patient HX: Liver and colon cancer TECHNIQUE: Imaging protocol: Diagnostic computed tomography of the chest with contrast. Radiation optimization: All CT scans at this facility use at least one of these dose optimization techniques: automated exposure control; mA and/or kV adjustment per patient size (includes targeted exams where dose is matched to clinical indication); or iterative reconstruction. Contrast material: OMNI 350; Contrast volume: 95 ml; Contrast route: INTRAVENOUS (IV); COMPARISON: CT chest abdpel w/*[id number] 10/31/2023 11:59 AM RADIATION DOSE METRICS: Total DLP (mGy-cm): 403.6 FINDINGS: Tubes, catheters and devices: Right infusion port terminates in the SVC. Lungs: Stable 5 mm subpleural nodule at the lateral right lung base (5-50). Pleural spaces: Unremarkable. No pneumothorax. No pleural effusion. Heart: Unremarkable. No cardiomegaly. No pericardial effusion. Lymph nodes: Unremarkable. No enlarged lymph nodes. Vasculature: Unremarkable. No aortic aneurysm. Bones/joints: Unremarkable. No acute fracture. Soft tissues: Unremarkable. PROCEDURE INFORMATION: Exam: CT Abdomen And Pelvis With Contrast Exam date and time: 04/11/2024 9:37 AM Age: 68 years old Clinical indication: Condition or disease; Other: Malignant neoplasm of hepatic flexure; Prior surgery; Surgery date: 6+ months; Surgery type: Colon x 2, gb, tubal, appy, liver; Patient HX: Liver and colon cancer TECHNIQUE: Imaging protocol: Computed tomography of the abdomen and pelvis with contrast. Radiation optimization: All CT scans at this facility use at least one of these dose optimization techniques: automated exposure control; mA and/or kV adjustment per patient size (includes targeted exams where dose is matched to clinical indication); or iterative reconstruction. Contrast material: OMNI 350; Contrast volume: 95 ml; Contrast route: INTRAVENOUS (IV); COMPARISON: CT chest abdpel w/*[id number] 10/31/2023 11:59 AM RADIATION DOSE METRICS: Total DLP (mGy-cm): 403.6 FINDINGS: Liver: Partial resection of the right hepatic lobe. Low attenuation material at the resection edge could represent either residual tumor or postsurgical scarring. Gallbladder and biliary ducts: Normal. No calcified stones. No ductal dilation. Pancreas: Normal. No ductal dilation. Spleen: Normal. No splenomegaly. Adrenal glands: Normal. No mass. Kidneys and ureters: Normal. No hydronephrosis. Stomach and bowel: There is thickening of the wall of the sigmoid colon which was probably present previously and represents either chronic or recurrent sigmoid colitis. Mild thickening of the wall of the gastric antrum and minimally the duodenal bulb suggests antritis and duodenitis. Appendix: No evidence of appendicitis. Intraperitoneal space: Unremarkable. No free air. No significant fluid collection. Vasculature: Unremarkable. No abdominal aortic aneurysm. Lymph nodes: Unremarkable. No enlarged lymph nodes. Urinary bladder: Unremarkable as visualized. Reproductive: Unremarkable as visualized. Bones/joints: Unremarkable. No acute fracture. Soft tissues: Unremarkable. CT/CT chest abdpel w/*[id number] IMPRESSION: Stable 5 mm subpleural nodule on the right, likely benign. IMPRESSION: 1. Partial right hepatectomy. Postsurgical change versus residual tumor at the operative margin. 2. Possible gastric antritis. 3. Chronic or recurrent sigmoid wall thickening.
[2024-04-11] MEDS: iohexol 350 mg/mL 500 mL Btl (per mL) PO (09:32)
[2024-04-11] MEDS: iohexol 350 mg/mL 500 mL Btl (per mL) IV (09:45)
== END 2024-04-21 23:59 | disposition home or self-care (01) ==
PROVIDERS: Internal Medicine Medical Oncology; Family Provider Surgery; PCP Family Medicine; Visit Provider Nurse Practitioner Family
DX: Z53.9 Procedure and treatment not carried out, unspecified reason (principal)
CPT/HCPCS: 71260; 74177; 80053; 82378; 85025

== ENCOUNTER 2024-05-31 14:49 | Oncology outpatient (recurring) (ONCR) | payer OTHER, SELFPAY | END 2024-06-22 23:59 | disposition home or self-care (01) | PROVIDERS: Family Provider Surgery; PCP Family Medicine; Visit Provider Nurse Practitioner Family | DX: Z53.9 Procedure and treatment not carried out, unspecified reason (principal); C18.3 Malignant neoplasm of hepatic flexure; C18.0 Malignant neoplasm of cecum; D70.1 Agranulocytosis secondary to cancer chemotherapy; Z79.899 Other long term (current) drug therapy; Z90.49 Acquired absence of other specified parts of digestive tract; C78.7 Secondary malignant neoplasm of liver and intrahepatic bile duct; Z45.1 Encounter for adjustment and management of infusion pump; Z51.11 Encounter for antineoplastic chemotherapy; Z79.52 Long term (current) use of systemic steroids | CPT/HCPCS: 96523 ==

== ENCOUNTER 2024-07-17 11:15 | Oncology outpatient (recurring) (ONCR) | payer OTHER, SELFPAY ==
--- NOTE | 2024-07-09 13:30 | CT_ITS ---
WS: [id number] Exam: CT chest abdpel w/*[id number] Date/Time of Exam: 07/09/2024 12:25 PM Reason For Exam: adenocarcinoma of cecum DLP: 414.[address] scans at [facility] use at least one of these dose optimization techniques: automated exposure control; mA and/or kV adjustment per patient size (includes targeted exams where dose is matched to clinical indication); or iterative reconstruction. CT scan of the chest with contrast. Comparison 04/11/2024. Stable appearing small subpleural nodules in the lateral RIGHT lung base. The lungs are otherwise clear. No infiltrates or pleural effusions. The major airway structures are patent. The thoracic aorta is normal in caliber. No lymphadenopathy in the chest. No pericardial effusion. Normal thyroid lobes. No destructive bone lesions. No chest wall defects. CT/CT chest abdpel w/*[id number] IMPRESSION: 1. Stable appearing small subpleural nodules in the lateral RIGHT lung base. No significant new finding in the chest. CT scan of the abdomen and pelvis. Partial resection of the RIGHT hepatic lobe noted. Low-attenuation areas along the resection line are stable in appearance. The remaining tissues of the liver are unremarkable. No intrahepatic ductal dilatation. The spleen and pancreas a re unremarkable. There is debris in the stomach most likely food. The abdominal aorta and IVC are patent. Normal adrenal glands and kidneys. No lymphadenopath y in the abdomen or pelvis. Small bowel loops are normal in caliber. Again note d are several segmental areas of wall thickening involving the LEFT colon that causes some degree of luminal narrowing. There are also several thickened small bowel loops in the lower abdomen and pelvis. No lymphadenopathy in the pelvis. The urinary bladder is intact as visualized. No pelvic mass. No destructive ryan ne lesions are seen. Abnormal fluid collection noted in the uterus. Again noted is wall thickening of the sigmoid colon. IMPRESSION: 1. Partial RIGHT hepatectomy. Low-attenuation areas along the resection line ar e stable in appearance. 2. Several segmental areas of wall thickening and stenosis involving the LEFT c olon. There is also bowel wall thickening of the sigmoid colon. Additionally th ere are several distal small bowel loops that demonstrate wall thickening. 3. Abnormal fluid collection in the uterus unchanged in appearance. 4. No new mass or lymphadenopathy in the abdomen or pelvis.
[2024-07-09 13:36] LABS: Blood Urea Nitrogen 11 mg/dL (8-23); Glomerular Filtration Rate 99.7 mL/min (90-130)
[2024-07-09] MEDS: iohexol 350 mg/mL 500 mL Btl (per mL) IV (13:44)
[2024-07-09] MEDS: iohexol 350 mg/mL 500 mL Btl (per mL) PO (13:44)
[2024-07-17 11:33] LABS: Basophils # 0.1 10^3/uL (0.0-0.1); Eosinophils # 0.1 10^3/uL (0.0-0.8); Eosinophils % 1.2 %; Hematocrit 38.4 % (36-47); Lymphocytes # 1.4 10^3/uL (0.8-4.8); Lymphocytes % 28.2 %; Mean Corpuscular HGB Conc 33.1 g/dL (30-55); Mean Corpuscular Hemoglobin 30.1 pg (27-33); Mean Platelet Volume 9.2 fL (7.4-10.4); Monocytes # 0.4 10^3/uL (0.2-0.9); Monocytes % 8.5 %; Neutrophils # 3.07 10^3/uL (1.8-7.7); Neutrophils % 60.9 %; Nucleated Red Blood Cells % 0 %; Platelet Count 135 10^3/cmm (157-399); Red Blood Count 4.22 10^6/uL (3.85-5.65); Red Cell Distribution Width 13.8 % (12.1-15.1); White Blood Count 5.04 10^3/uL (3.29-11.43)
[2024-07-17 11:39] LABS: Alanine Aminotransferase 17 U/L (0-33); Albumin Level 4.2 g/dL (3.5-5.2); Alkaline Phosphatase 161 U/L (35-105); Anion Gap 10.5 (5-19); Aspartate Amino Transferase 23 U/L (0-32); Blood Urea Nitrogen 7 mg/dL (8-23); Calcium 8.9 mg/dL (8.5-10.5); Carbon Dioxide 25 mmol/L (22-29); Chloride 106 mmol/L (98-107); Creatinine Clr Calc Pharmacy 49.8546; Globulin 2.9 g/dL (1.3-4.6); Glomerular Filtration Rate 123.1 mL/min (90-130); Glucose 93 mg/dL (65-115); Osmolality Calculated 284 mOsm/kg (285-295); Potassium 3.5 mmol/L (3.5-5.1); Sodium 138 mmol/L (136-145); Total Bilirubin 0.6 mg/dL (0.15-1.2); Total Protein 7.1 g/dL (6.6-8.7)
[2024-07-17 12:02] LABS: Carcinoembryonic Antigen 3.7 ng/mL (0.0-4.7)
== END 2024-07-20 23:59 | disposition home or self-care (01) ==
PROVIDERS: PCP Surgery Surgical Oncology; Visit Provider Internal Medicine Medical Oncology
DX: Z53.9 Procedure and treatment not carried out, unspecified reason; C18.0 Malignant neoplasm of cecum; D50.0 Iron deficiency anemia secondary to blood loss (chronic)
CPT/HCPCS: 36591; 71260; 74177; 80053; 82378; 82565; 84520; 85025

== ENCOUNTER 2024-07-23 09:14 | Day surgery (SDC) | payer MEDICARE, SELFPAY ==
[2024-07-23] VITALS (7 sets, daily range): BP systolic 114–159; BP diastolic 69–106; PULSE 79–91; RESP 14–22; TEMP 36.5–37.2; O2SAT 98–100
--- NOTE | 2024-07-23 09:47 | ANES.PREANE2 ---
Pre-Anesthetic Assessment Height/Weight: Height 5 ft 1 in Temp Pulse Resp BP Pulse Ox O2 Del Method 98 F 89 18 159/106 98 Room Air 07/23/24 09:31 07/23/24 09:31 07/23/24 09:31 07/23/24 09:31 07/23/24 09:31 07/23/24 09:31 Preop Diagnosis: Requesting port removal Operation Date: 07/23/24 10:30 Proposed Procedures p Portacath Removal [id number], Z95.828(Not Applicable) - Lukasz Calderón MD Was Beta Kristin taken within 24 hours: N/A Was Clonidine taken within 24 hours: N/A Last intake: Intake Last Liquid Date 07/22/24 Last Liquid Time 23:59 Last Solid Date 07/22/24 Last Solid Time 20:30 Social No alcohol and No tobacco Exam alert, oriented x 3, clear to auscultation bilaterally and regular rate & rhythm Airway Submandibular: within normal limits Cervical ROM: within normal limits Mallampati: Class II Dentition: false Anesthetic Plan ASA status: 3 Anesthesia: MAC Other: No prior issues with anesthesia NPO since yesterday evening Patient had colon cancer with mets to the liver. Liver lobe resection in December performed Denies any pulmonary issues. States she has recently had a little high BP. Preop BP 159/106 METs greater than 4 Plan for MAC anesthesia with local via surgeon Medications/Allergies Home Medications ?Medication ?Instructions ?Recorded ?Confirmed ?Last Taken ?Type multivitamin 1 tab PO DAILY 07/20/24 07/23/24 07/20/24 History Allergies Allergy/AdvReac Type Severity Reaction Status Date / Time adhesive Allergy Intermediate ADR-Itching Verified 07/18/24 11:04 /Redness latex Allergy Intermediate ALGY-Rash Verified 07/18/24 11:04 adhesive tape Allergy Mild ALGY-Rash Verified 07/18/24 11:04 oxaliplatin Allergy ALGY-Hives Verified 07/18/24 11:04 [facility] Anesthesia Medical History History of colon cancer (2019) Iron deficiency anemia Surgical History (Updated 07/18/24 @ 10:58 by KIRSTIE Ugalde) History of colonoscopy with polypectomy (05/25/23) History of tubal ligation Port-A-Cath in place Hx of right hemicolectomy (06/18/18) Family History Mother Uterine cancer Heart disease Stroke Diabetes Denies family history of Colon cancer Ovarian cancer Breast cancer Hypertension Thyroid disease Social History Smoking and tobacco/nicotine status: never used tobacco/nicotine Data Anesthesia Cardiac Studies: No Data to Display
[2024-07-23] MEDS: sodium chloride 0.9% 1,000 ML 30 ML IV (09:53)
--- NOTE | 2024-07-23 10:13 | P.HPUD_ITS ---
Surgery/Procedure H&P Update DATE OF PROCEDURE: July 23, 2024 DATE H&P PERFORMED: 07/18/24 H&P UPDATE INFORMATION: I have reviewed H&P completed within last 30 days, I have examined patient prior to procedure, No changes to prior documentation and H&P is in [facility] on date indicated PREOP DIAGNOSIS: Requesting port removal PLANNED PROCEDURE: Operation Date: 07/23/24 10:30 Proposed Procedures p Portacath Removal [id number], Z95.828(Not Applicable) - Lukasz Calderón MD
[2024-07-23] MEDS: ceFAZolin 2,000 mg SDV 2000 MG IVP (10:42)
[2024-07-23] MEDS: BUPivacaine 0.25% INJ 10 mL INJECTION (10:58)
[2024-07-23] MEDS: lidocaine-epi 1% 20 mL INJ INJECTION (10:58)
--- NOTE | 2024-07-23 11:18 | P.OP_ITS ---
Operative Report Date of procedure: July 23, 2024 Pre-op diagnosis: Colon cancer Post-op diagnosis: Same Post-op findings: Left subclavian Port-A-Cath noted in place, fibrous capsule noted around the catheter. Procedure done: Excision of Port-A-Cath Specimens removed/disposition: Port-A-Cath Surgeon: Lukasz Calderón MD Compliance Investigator: BEULAH OR STaff Estimated blood loss: 5 Brief History: This is a 68-year-old female who is here for excision of Port-A-Cath. She has completed therapy and we have discussed all risks and benefits as documented in my preop note Procedure: Patient was brought into the OR, she was placed in a supine position. Moderate anesthesia and sedation was given, the left upper chest was prepped and draped in the usual sterile fashion. Local anesthesia was infiltrated after a timeout was conducted. Then made a 3 cm incision overlying the previous incision site, the incision was deepened until the capsule of the cord was noted, the capsule was opened with electrocautery. The port was delivered through the skin and removed while pressure was held in the subclavian vein. The port was passed to the scrub table. The tract from the catheter was closed using #3-0 Vicryl [id number] suture. The capsule was excised using Metzenbaum. Hemostasis was achieved. The wound was irrigated. The wound was closed in layers using #3-0 Vicryl for the subcutaneous tissue #4 Monocryl for the skin. Sterile dressing was applied. At the end of the procedure all counts were correct, the patient tolerated well the procedure was transferred to PACU in stable condition
--- NOTE | 2024-07-23 12:30 | ANE.PACU2 ---
Inpatient post-anesthesia follow up: Airway intact: Yes Vital signs: Temperature 98.9 F Pulse Rate 80 Respiratory Rate 16 Blood Pressure 140/89 Pulse Oximetry 99 Oxygen Delivery Me thod Room Air Oxygen Flow Rate Fraction of Inspir ed Oxygen Hydration adequate: Yes Nausea and vomiting: No Pain level: 1 Mental status: Baseline
== END 2024-07-23 12:30 | disposition home or self-care (01) ==
PROVIDERS: Visit Provider Surgery
PROC: (CPT 36589; principal; 2024-07-23 10:20)
DX: Z45.2 Encounter for adjustment and management of vascular access device (principal); Z85.05 Personal history of malignant neoplasm of liver; Z85.038 Personal history of other malignant neoplasm of large intestine; Z91.040 Latex allergy status; Z88.8 Allergy status to other drugs, medicaments and biological substances; Z91.09 Other allergy status, other than to drugs and biological substances; Z90.49 Acquired absence of other specified parts of digestive tract
CPT/HCPCS: 36590; J0690; J2704; J3490; J7030

== ENCOUNTER → 2024-08-07 09:02 | Outpatient (BNVA) | payer MEDICARE, SELFPAY | PROVIDERS: Visit Provider Surgery | DX: Z95.828 Presence of other vascular implants and grafts (principal) | CPT/HCPCS: 99213 ==

== ENCOUNTER 2024-10-09 10:41 | Oncology outpatient (recurring) (ONCR) | payer MEDICARE, SELFPAY ==
[2024-10-09] MEDS: iohexol 350 mg/mL 500 mL Btl (per mL) PO (11:59)
--- NOTE | 2024-10-09 12:00 | CTR_ITS ---
PROCEDURE INFORMATION: Exam: CT Chest With Contrast; Diagnostic Exam date and time: 10/09/2024 12:10 PM Age: 69 years old Clinical indication: Condition or disease; Other: Malignant neoplasm of hepatic flexure; Prior surgery; Surgery date: 6+ months; Surgery type: Colon x 2, port in/out, liver, gb, appy, tubal; Follow up colon cancer, pain when lifting left arm, neuropathy in hands and feet. TECHNIQUE: Imaging protocol: Diagnostic computed tomography of the chest with contrast. Radiation optimization: All CT scans at this facility use at least one of these dose optimization techniques: automated exposure control; mA and/or kV adjustment per patient size (includes targeted exams where dose is matched to clinical indication); or iterative reconstruction. Contrast material: OMNI 350; Contrast volume: 100 ml; Contrast route: INTRAVENOUS (IV); COMPARISON: CT chest abdpel w/*[id number] 07/09/2024 1:36 PM RADIATION DOSE METRICS: Total DLP (mGy-cm): 426.57 FINDINGS: Lungs: Small stable subpleural nodule at the lateral right lung base. Pleural spaces: Unremarkable. No pneumothorax. No pleural effusion. Heart: Unremarkable. No cardiomegaly. No pericardial effusion. Lymph nodes: Unremarkable. No enlarged lymph nodes. Vasculature: Unremarkable. No aortic aneurysm. Bones/joints: Unremarkable. No acute fracture. Soft tissues: Unremarkable. PROCEDURE INFORMATION: Exam: CT Abdomen And Pelvis With Contrast Exam date and time: 10/09/2024 12:10 PM Age: 69 years old Clinical indication: Condition or disease; Other: Malignant neoplasm of hepatic flexure; Prior surgery; Surgery date: 6+ months; Surgery type: Colon x 2, port in/out, liver, gb, appy, tubal; Follow up colon cancer, pain when lifting left arm, neuropathy in hands and feet. TECHNIQUE: Imaging protocol: Computed tomography of the abdomen and pelvis with contrast. Radiation optimization: All CT scans at this facility use at least one of these dose optimization techniques: automated exposure control; mA and/or kV adjustment per patient size (includes targeted exams where dose is matched to clinical indication); or iterative reconstruction. Contrast material: OMNI 350; Contrast volume: 100 ml; Contrast route: INTRAVENOUS (IV); COMPARISON: CT chest abdpel w/*[id number] 07/09/2024 1:36 PM RADIATION DOSE METRICS: Total DLP (mGy-cm): 426.57 FINDINGS: Liver: Partial hepatectomy. Gallbladder and biliary ducts: Cholecystectomy. Pancreas: Normal. No ductal dilation. Spleen: Normal. No splenomegaly. Adrenal glands: Normal. No mass. Kidneys and ureters: Normal. No hydronephrosis. Stomach and bowel: Persistent thickening of the wall of the colon at the hepatic flexure. An area of stenosis is present as well. The appearance is similar to what was seen previously. Also seen are multiple focal areas of slight wall thickening elsewhere within the colon, similar to what was seen before. Appendix: No evidence of appendicitis. Intraperitoneal space: Unremarkable. No free air. No significant fluid collection. Vasculature: Unremarkable. No abdominal aortic aneurysm. Lymph nodes: Unremarkable. No enlarged lymph nodes. Urinary bladder: Unremarkable as visualized. Reproductive: Unremarkable as visualized. Bones/joints: Unremarkable. No acute fracture. Soft tissues: Unremarkable. CT/CT chest abdpel w/*[id number] IMPRESSION: No interval change. IMPRESSION: No significant interval change.
[2024-10-09] MEDS: iohexol 350 mg/mL 500 mL Btl (per mL) IV (12:17)
[2024-10-09 12:18] LABS: Blood Urea Nitrogen 8 mg/dL (8-23); Glomerular Filtration Rate 99.4 mL/min (90-130)
== END 2024-10-20 23:59 | disposition home or self-care (01) ==
LOC: ONCMED 10:42 → RAD 10:43 → ONCMED 10-10 09:37
PROVIDERS: Visit Provider Internal Medicine Medical Oncology
DX: Z53.9 Procedure and treatment not carried out, unspecified reason (principal); C18.0 Malignant neoplasm of cecum; D50.0 Iron deficiency anemia secondary to blood loss (chronic); C18.3 Malignant neoplasm of hepatic flexure
CPT/HCPCS: 71260; 74177; 82565; 84520

== ENCOUNTER 2024-10-30 14:40 | Oncology outpatient (recurring) (ONCR) | payer MEDICARE, SELFPAY ==
[2024-10-30 15:01] LABS: Basophils % 0.7 %; Hematocrit 40.9 % (36-47); Lymphocytes # 1.3 10^3/uL (0.8-4.8); Lymphocytes % 30.9 %; Mean Corpuscular HGB Conc 32.8 g/dL (30-55); Mean Corpuscular Hemoglobin 30.4 pg (27-33); Mean Corpuscular Volume 92.7 fl (85-98); Mean Platelet Volume 9.5 fL (7.4-10.4); Monocytes # 0.4 10^3/uL (0.2-0.9); Monocytes % 8.6 %; Neutrophils # 2.44 10^3/uL (1.8-7.7); Neutrophils % 58.6 %; Nucleated Red Blood Cells % 0 %; Platelet Count 125 10^3/cmm (157-399); Red Blood Count 4.41 10^6/uL (3.85-5.65); Red Cell Distribution Width 13.3 % (12.1-15.1); White Blood Count 4.17 10^3/uL (3.29-11.43)
[2024-10-30 15:15] LABS: Alanine Aminotransferase 24 U/L (0-33); Albumin Level 4.4 g/dL (3.5-5.2); Alkaline Phosphatase 134 U/L (35-105); Anion Gap 15.4 (5-19); Aspartate Amino Transferase 27 U/L (0-32); Blood Urea Nitrogen 8 mg/dL (8-23); Calcium 9.2 mg/dL (8.5-10.5); Carbon Dioxide 24 mmol/L (22-29); Chloride 104 mmol/L (98-107); Globulin 2.8 g/dL (1.3-4.6); Glomerular Filtration Rate 99.4 mL/min (90-130); Glucose 107 mg/dL (65-115); Osmolality Calculated 289 mOsm/kg (285-295); Potassium 3.4 mmol/L (3.5-5.1); Sodium 140 mmol/L (136-145); Total Bilirubin 0.5 mg/dL (0.15-1.2); Total Protein 7.2 g/dL (6.6-8.7)
== END 2024-11-19 23:59 | disposition home or self-care (01) ==
PROVIDERS: Visit Provider Internal Medicine Medical Oncology
DX: D50.0 Iron deficiency anemia secondary to blood loss (chronic) (principal); C18.3 Malignant neoplasm of hepatic flexure
CPT/HCPCS: 36415; 80053; 82378; 85025; 99214

== ENCOUNTER 2025-02-05 12:45 | Oncology outpatient (recurring) (ONCR) | payer MEDICARE, SELFPAY ==
--- NOTE | 2025-01-30 12:30 | CTR_ITS ---
PROCEDURE INFORMATION: Exam: CT Chest With Contrast; Diagnostic Exam date and time: 01/30/2025 12:45 PM Age: 69 years old Clinical indication: Condition or disease; Other: Colon cancer; Prior surgery; Surgery date: 6+ months; Surgery type: Colon x 2, port in/out, liver, gb, appy, tubal TECHNIQUE: Imaging protocol: Diagnostic computed tomography of the chest with contrast. Radiation optimization: All CT scans at this facility use at least one of these dose optimization techniques: automated exposure control; mA and/or kV adjustment per patient size (includes targeted exams where dose is matched to clinical indication); or iterative reconstruction. Contrast material: OMNI 350; Contrast volume: 100 ml; Contrast route: INTRAVENOUS (IV); COMPARISON: CT chest abdpel w/*[id number] 10/09/2024 12:10 PM RADIATION DOSE METRICS: Total DLP (mGy-cm): 451.08 FINDINGS: Lungs: Stable subpleural nodule at the right lung base. Pleural spaces: Unremarkable. No pneumothorax. No pleural effusion. Heart: Unremarkable. No cardiomegaly. No pericardial effusion. Lymph nodes: Unremarkable. No enlarged lymph nodes. Vasculature: Unremarkable. No aortic aneurysm. Bones/joints: Unremarkable. No acute fracture. Soft tissues: Unremarkable. PROCEDURE INFORMATION: Exam: CT Abdomen And Pelvis With Contrast Exam date and time: 01/30/2025 12:45 PM Age: 69 years old Clinical indication: Condition or disease; Other: Colon cancer; Prior surgery; Surgery date: 6+ months; Surgery type: Colon x 2, port in/out, liver, gb, appy, tubal TECHNIQUE: Imaging protocol: Computed tomography of the abdomen and pelvis with contrast. Radiation optimization: All CT scans at this facility use at least one of these dose optimization techniques: automated exposure control; mA and/or kV adjustment per patient size (includes targeted exams where dose is matched to clinical indication); or iterative reconstruction. Contrast material: OMNI 350; Contrast volume: 100 ml; Contrast route: INTRAVENOUS (IV); COMPARISON: CT chest abdpel w/*[id number] 10/09/2024 12:10 PM RADIATION DOSE METRICS: Total DLP (mGy-cm): 451.08 FINDINGS: Liver: Stable partial right hepatectomy. Thickening of the wall of the gastric antrum and minimally the adjacent duodenal is unchanged. Gallbladder and biliary ducts: Normal. No calcified stones. No ductal dilation. Pancreas: Normal. No ductal dilation. Spleen: Normal. No splenomegaly. Adrenal glands: Normal. No mass. Kidneys and ureters: Normal. No hydronephrosis. Stomach and bowel: See Liver finding. Appendix: No evidence of appendicitis. Intraperitoneal space: Unremarkable. No free air. No significant fluid collection. Vasculature: Unremarkable. No abdominal aortic aneurysm. Lymph nodes: Unremarkable. No enlarged lymph nodes. Urinary bladder: Unremarkable as visualized. Reproductive: Prominent veins draining the uterus, unchanged. Bones/joints: Unremarkable. No acute fracture. Soft tissues: Unremarkable. CT/CT chest abdpel w/*[id number] IMPRESSION: No acute findings. IMPRESSION: No acute findings.
[2025-01-30] MEDS: iohexol 350 mg/mL 500 mL Btl (per mL) PO (12:32)
[2025-01-30 12:42] LABS: Blood Urea Nitrogen 10 mg/dL (8-23)
[2025-01-30] MEDS: iohexol 350 mg/mL 500 mL Btl (per mL) IV (13:09)
[2025-02-05 13:00] LABS: Hematocrit 40.4 % (36-47); Hemoglobin 13.10 g/dL (11.27-16.99); Mean Corpuscular HGB Conc 32.4 g/dL (30-55); Mean Corpuscular Hemoglobin 29.8 pg (27-33); Mean Corpuscular Volume 92.0 fl (85-98); Nucleated Red Blood Cells % 0 %; Platelet Count 149 10^3/cmm (157-399); Red Blood Count 4.39 10^6/uL (3.85-5.65); White Blood Count 4.45 10^3/uL (3.29-11.43)
[2025-02-05 13:20] LABS: Alanine Aminotransferase 15 U/L (0-33); Albumin Level 4.5 g/dL (3.5-5.2); Alkaline Phosphatase 124 U/L (35-105); Anion Gap 15.4 (5-19); Aspartate Amino Transferase 17 U/L (0-32); Blood Urea Nitrogen 14 mg/dL (8-23); Calcium 9.4 mg/dL (8.5-10.5); Carbon Dioxide 24 mmol/L (22-29); Chloride 106 mmol/L (98-107); Globulin 3.1 g/dL (1.3-4.6); Glucose 128 mg/dL (65-115); Osmolality Calculated 296 mOsm/kg (285-295); Potassium 3.4 mmol/L (3.5-5.1); Sodium 142 mmol/L (136-145); Total Protein 7.6 g/dL (6.6-8.7)
[2025-02-05 14:41] LABS: Carcinoembryonic Antigen 6.6 ng/mL (0.0-4.7)
== END 2025-02-19 23:59 | disposition home or self-care (01) ==
PROVIDERS: Nurse Practitioner Family; Visit Provider Internal Medicine Medical Oncology
DX: Z08 Encounter for follow-up examination after completed treatment for malignant neoplasm; Z85.05 Personal history of malignant neoplasm of liver; R03.0 Elevated blood-pressure reading, without diagnosis of hypertension; R10.11 Right upper quadrant pain; G50.1 Atypical facial pain; Z98.890 Other specified postprocedural states; Z53.9 Procedure and treatment not carried out, unspecified reason
CPT/HCPCS: 36415; 71260; 74177; 80053; 82378; 82565; 84520; 85025; 99214